=== PATIENT | male | born 1965 | race African-American/Black ===

== ENCOUNTER 2016-08-15 18:11 | Observation (INO) | payer MEDICAID ==
[~2016-08-15] VITALS: Ht 190.5 cm; Wt 81.6 kg
[~2016-08-15 18:11] MED LIST: ASPI-1159 PO; CARV3.1242 PO; FURO40TA5 PO; LOSA50TA20 PO
[2016-08-15] MEDS ORDERED: FUROSEMIDE 40MG TABLET PO ONE (20:00)
[2016-08-15] MEDS ORDERED: LOSARTAN POTASSIUM 50 MG TABLET PO ONE (20:00)
[2016-08-15] MEDS ORDERED: ASPIRIN 81MG TABLET PO ONE (20:00)
[2016-08-15 20:29] LABS: BASOPHILS % 1.3 % (0.0-2.0); EOSINOPHILS % 7.9 % (0.0-5.0); HEMATOCRIT. 39.1 % (42.0-52.0); LYMPHOCYTES % 31.3 % (20.0-50.0); MEAN CORPUSCULAR HEMOGLOBIN 33.6 pg (28.0-32.0); MEAN CORPUSCULAR VOLUME 93.5 fL (80.0-94.0); MEAN PLATELET VOLUME 8.7 fl (7.4-10.4); MONOCYTES % 5.3 % (2.0-8.0); NEUTROPHILS % 54.2 % (40.0-76.0); PLATELET 148 x1000/uL (130-400); RED BLOOD CELL COUNT 4.18 mill/uL (4.7-6.1); RED CELL DISTRIBUTION WIDTH 15.5 % (11.6-14.6)
[2016-08-15 20:34] LABS: CHLORIDE 111 mEq/L (98-107)
[2016-08-15 20:37] LABS: CARBON DIOXIDE 26 mEq/L (21-32)
[2016-08-15 20:38] LABS: D-DIMER 1.82 mg/L FEU (<0.50); PROTHROMBIN TIME 10.8 sec
[2016-08-15] MEDS ORDERED: NITROGLYCERIN OINT 1GM/INCH UDPKT TD ONE (20:45)
[2016-08-16 08:00] VITALS: BP_SYST 130; BP_DIAS 108; BP_DIAS 98
[2016-08-16 08:42] VITALS: BP 130/98
[2016-08-16] MEDS ORDERED: HYDROMORPHONE HCL/PF 2MG/ML CPJ IV PRN (08:45)
[2016-08-16] MEDS: IPRATROPIUM/ALBUTEROL 0.5-3(2.5)MG/3ML NEB HHN SCH ×4 (08:45→21:08)
[2016-08-16] MEDS ORDERED: ONDANSETRON HCL 4MG/2ML VIAL IV PRN (08:45)
[2016-08-16] MEDS ORDERED: ACETAMINOPHEN 325MG TABLET PO PRN (08:45)
[2016-08-16 08:55] VITALS: BP 130/98
[2016-08-16] MEDS: CARVEDILOL 3.125 MG TABLET PO SCH ×3 (09:00→21:26)
[2016-08-16] MEDS: LOSARTAN POTASSIUM 50 MG TABLET PO SCH (09:47)
[2016-08-16] MEDS: ASPIRIN 81MG EC TABLET PO SCH (09:47)
[2016-08-16] MEDS: ENOXAPARIN 40MG/0.4ML SYR SUBCUT SCH (09:48)
[2016-08-16] MEDS: FUROSEMIDE 20MG/2ML VIAL IVP SCH (09:48)
[2016-08-16 12:00] VITALS: BP 129/100
[2016-08-16] MEDS: AMLODIPINE 5MG TABLET PO SCH ×2 (13:30→21:26)
[2016-08-16] MEDS ORDERED: CLONIDINE 0.2MG TABLET PO PRN (13:30)
[2016-08-16] MEDS ORDERED: CLONIDINE 0.1MG TABLET PO PRN (13:30)
[2016-08-16 16:08] LABS: CREATINE KINASE MB FRACTION 5.2 ng/mL (0.5-3.6)
[2016-08-16 16:12] VITALS: BP 114/93
[2016-08-16 16:37] LABS: TROPONIN I 0.9 ng/mL (0.00-0.04)
[2016-08-16] MEDS: ATORVASTATIN CALCIUM 10MG TABLET PO SCH (21:25)
[2016-08-16 21:28] LABS: *AMPHETAMINES SCREEN URINE NEGATIVE (NEGATIVE); *BARBITURATES SCREEN URINE NEGATIVE (NEGATIVE); *BENZODIAZEPINES SCREEN URINE NEGATIVE (NEGATIVE); *COCAINE SCREEN URINE PRESUMTIVE POSITIVE (NEGATIVE); CANNABINOID URINE SCREEN PRESUMTIVE POSITIVE (NEGATIVE); METHADONE URINE SCREEN NEGATIVE (NEGATIVE); OPIATES URINE SCREEN NEGATIVE (NEGATIVE); PHENCYCLIDINE URINE SCREEN PRESUMTIVE POSITIVE (NEGATIVE)
[2016-08-17 00:16] LABS: CREATINE KINASE MB FRACTION 5.2 ng/mL (0.5-3.6)
[2016-08-17] MEDS: IPRATROPIUM/ALBUTEROL 0.5-3(2.5)MG/3ML NEB HHN SCH ×6 (00:43→20:51)
[2016-08-17 01:11] VITALS: BP 135/100
[2016-08-17 01:28] LABS: TROPONIN I 0.91 ng/mL (0.00-0.04)
[2016-08-17 04:00] VITALS: BP 144/110
[2016-08-17 06:01] LABS: BASOPHILS % 0.8 % (0.0-2.0); EOSINOPHILS % 6.6 % (0.0-5.0); HEMATOCRIT. 42.3 % (42.0-52.0); HEMOGLOBIN. 14.8 g/dL (14.0-18.0); LYMPHOCYTES % 30.8 % (20.0-50.0); MEAN CORPUSCULAR HEMOGLOBIN 32.7 pg (28.0-32.0); MEAN CORPUSCULAR VOLUME 93.9 fL (80.0-94.0); MEAN PLATELET VOLUME 9.5 fl (7.4-10.4); MONOCYTES % 4.6 % (2.0-8.0); NEUTROPHILS % 57.2 % (40.0-76.0); PLATELET 148 x1000/uL (130-400); RED BLOOD CELL COUNT 4.51 mill/uL (4.7-6.1); RED CELL DISTRIBUTION WIDTH 15.2 % (11.6-14.6)
[2016-08-17 06:35] LABS: CARBON DIOXIDE 24 mEq/L (21-32); CHLORIDE 106 mEq/L (98-107)
[2016-08-17 07:23] LABS: BG BASE EXCESS -1.4 mmol/L (-2.0-2.0); BG DEOXYHEMOGLOBIN 8.7 % (0.0-5.0); BG FRACTION INSPIRED OXYGEN 21; BG HCO3 ACT 22.8 mmol/L (22.0-26.0); BG METHEMOGLOBIN 0.4 % (0.0-1.5); BG OXYGEN SATURATION 91.2 % (92.0-98.5); BG OXYHEMOGLOBIN 89.9 % (94.0-97.0); BG PH 7.408 (7.350-7.450); BG PO2 64.9 mmHg (75.0-100.0); BG SAMPLE SITE RIGHT RADIAL; BG TOTAL HEMOGLOBIN 15.4 g/dL (12.0-18.0); BG VENT MODE ROOM AIR
[2016-08-17 08:00] VITALS: BP_SYST 143; BP_SYST 99; BP_DIAS 110; BP_DIAS 59
[2016-08-17 08:01] LABS: TROPONIN I 0.92 ng/mL (0.00-0.04)
[2016-08-17] MEDS: CARVEDILOL 3.125 MG TABLET PO SCH (09:00)
[2016-08-17] MEDS: LOSARTAN POTASSIUM 50 MG TABLET PO SCH ×2 (09:21→20:33)
[2016-08-17] MEDS: ASPIRIN 81MG EC TABLET PO SCH (09:21)
[2016-08-17] MEDS: AMLODIPINE 5MG TABLET PO SCH ×2 (09:21→23:39)
[2016-08-17] MEDS: LORAZEPAM 0.5MG TABLET PO PRN ×2 (09:21→18:14)
[2016-08-17] MEDS: FUROSEMIDE 20MG/2ML VIAL IVP SCH (09:21)
[2016-08-17] MEDS: ENOXAPARIN 40MG/0.4ML SYR SUBCUT SCH (09:22)
[2016-08-17 12:00] VITALS: BP 135/101
[2016-08-17] MEDS ORDERED: MAGNESIUM 2 G PREMIX 50 ML IV NR (13:00)
[2016-08-17 16:00] VITALS: BP 124/101
[2016-08-17 20:00] VITALS: BP_SYST 114; BP_SYST 136; BP_DIAS 109; BP_DIAS 93
[2016-08-17] MEDS: ATORVASTATIN CALCIUM 10MG TABLET PO SCH (20:32)
[2016-08-17] MEDS: ISOSORB DINIT/HYDRALAZINE HCL 20/37.5MG TABLET PO SCH (22:00)
[2016-08-18] VITALS: BP 129/107
[2016-08-18] MEDS: IPRATROPIUM/ALBUTEROL 0.5-3(2.5)MG/3ML NEB HHN SCH ×3 (00:59→08:00)
[2016-08-18 04:00] VITALS: BP 131/103
[2016-08-18] MEDS: ISOSORB DINIT/HYDRALAZINE HCL 20/37.5MG TABLET PO SCH (05:48)
[2016-08-18 08:00] VITALS: BP_SYST 103; BP_SYST 134; BP_DIAS 70; BP_DIAS 84
[2016-08-18] MEDS ORDERED: CARVEDILOL 3.125 MG TABLET PO SCH (09:00)
[2016-08-18] MEDS ORDERED: METOPROLOL TARTRATE 50MG TABLET PO NR (09:00)
[2016-08-18] MEDS: ENOXAPARIN 40MG/0.4ML SYR SUBCUT SCH (09:23)
[2016-08-18] MEDS: ASPIRIN 81MG EC TABLET PO SCH (09:24)
[2016-08-18] MEDS: LOSARTAN POTASSIUM 50 MG TABLET PO SCH (09:24)
[2016-08-18] MEDS: FUROSEMIDE 20MG/2ML VIAL IVP SCH (09:24)
[2016-08-18] MEDS: AMLODIPINE 5MG TABLET PO SCH (09:24)
[2016-08-18] MEDS: LORAZEPAM 0.5MG TABLET PO PRN (09:28)
[2016-08-18 10:53] VITALS: BP 140/89
[2016-08-18 12:00] VITALS: BP 120/88
[2016-08-18] MEDS ORDERED: METOPROLOL TARTRATE 50MG TABLET PO SCH (21:00)
== END 2016-08-18 12:25 | disposition home or self-care (01) ==
LOC: ER 20:36 → 5WST 21:03 → INTOOBSV 21:03 → EDBEDREQ 21:07 → ENRESERV 08-16 07:03
PROVIDERS: ADMIT Internal Medicine Geriatric Medicine; ATTEND Internal Medicine Geriatric Medicine
DX: I50.23 Acute on chronic systolic (congestive) heart failure (principal); N18.9 Chronic kidney disease, unspecified; I13.0 Hypertensive heart and chronic kidney disease with heart failure and stage 1 through stage 4 chronic kidney disease, or unspecified chronic kidney disease; R74.8 Abnormal levels of other serum enzymes; E78.5 Hyperlipidemia, unspecified; F10.10 Alcohol abuse, uncomplicated; F14.10 Cocaine abuse, uncomplicated; F17.200 Nicotine dependence, unspecified, uncomplicated; I25.2 Old myocardial infarction; I25.5 Ischemic cardiomyopathy; I34.0 Nonrheumatic mitral (valve) insufficiency; I42.0 Dilated cardiomyopathy; Z79.82 Long term (current) use of aspirin; Z91.14 Patient's other noncompliance with medication regimen
CPT/HCPCS: 36415; 36600; 71010; 80048; 80053; 80305; 82270; 82375; 82553; 82805; 83735; 83880; 84443; 84484; 85025; 85379; 85610; 93005; 94640; 94664; 96365; 96367; 96372; 96375; 96376; 99285; G0378; J1650; J1940; J3475; J7030; 96366; J7620

== ENCOUNTER 2016-12-12 01:40 | Inpatient (IN) | payer MEDICAID ==
[~2016-12-12] VITALS: Ht 188 cm; Wt 74.4 kg
[2016-12-12] VITALS (28 sets, daily range): BP systolic 98–143; BP diastolic 34–109
[~2016-12-12 01:40] MED LIST changes: -CARV3.1242 PO
[2016-12-12] MEDS ORDERED: LORAZEPAM 2MG/ML CPJ IV ONE (02:15)
[2016-12-12 02:31] LABS: EOSINOPHILS % 1.9 % (0.0-5.0); HEMATOCRIT. 38.7 % (42.0-52.0); HEMOGLOBIN. 13.4 g/dL (14.0-18.0); LYMPHOCYTES % 16.7 % (20.0-50.0); MEAN CORPUSCULAR HEMOGLOBIN 30.9 pg (28.0-32.0); MEAN CORPUSCULAR VOLUME 89.5 fL (80.0-94.0); MEAN PLATELET VOLUME 8.6 fl (7.4-10.4); NEUTROPHILS % 75.4 % (40.0-76.0); PLATELET 237 x1000/uL (130-400); RED BLOOD CELL COUNT 4.32 mill/uL (4.7-6.1)
[2016-12-12] MEDS ORDERED: SPIR25TA4 PO (02:35)
[2016-12-12] MEDS ORDERED: LOSA25TA12 PO (02:35)
[2016-12-12] MEDS ORDERED: CARV3.1242 PO (02:35)
[2016-12-12 03:08] LABS: CARBON DIOXIDE 24 mEq/L (21-32); CHLORIDE 106 mEq/L (98-107); TROPONIN I 0.29 ng/mL (0.00-0.04)
[2016-12-12] MEDS ORDERED: FUROSEMIDE 40MG/4ML VIAL IVP ONE (03:45)
[2016-12-12] MEDS ORDERED: ACETAMINOPHEN 325MG TABLET PO PRN ×2 (05:00→07:15)
[2016-12-12] MEDS: FUROSEMIDE 40MG/4ML VIAL IVP SCH ×3 (09:06→22:50)
[2016-12-12] MEDS: SPIRONOLACTONE 25MG TABLET PO SCH (09:06)
[2016-12-12] MEDS: CARVEDILOL 3.125 MG TABLET PO SCH ×2 (09:07→21:26)
[2016-12-12] MEDS: LOSARTAN POTASSIUM 25 MG TABLET PO SCH (09:07)
[2016-12-12] MEDS: ASPIRIN 81MG EC TABLET PO SCH (09:07)
[2016-12-12] MEDS: ENOXAPARIN 40MG/0.4ML SYR SUBCUT SCH (09:22)
[2016-12-12] MEDS ORDERED: FLUMAZENIL 0.1 MG/ML 5ML VIAL IV NR (10:00)
[2016-12-12] MEDS ORDERED: FLUMAZENIL 0.1 MG/ML 5ML VIAL IV PRN (10:05)
[2016-12-12 10:16] LABS: BG BASE EXCESS 1.7 mmol/L (-2.0-2.0); BG CARBOXYHEMOGLOBIN 0.5 % (0.5-1.5); BG DEOXYHEMOGLOBIN 0.8 % (0.0-5.0); BG FRACTION INSPIRED OXYGEN 100; BG HCO3 ACT 19.7 mmol/L (22.0-26.0); BG METHEMOGLOBIN 0.3 % (0.0-1.5); BG OXYGEN SATURATION 99.2 % (92.0-98.5); BG OXYHEMOGLOBIN 98.4 % (94.0-97.0); BG PCO2 17.7 mmHg (35.0-45.0); BG PH 7.665 (7.350-7.450); BG PO2 180.7 mmHg (75.0-100.0); BG SAMPLE SITE RIGHT BRACHIAL; BG TOTAL HEMOGLOBIN 13.5 g/dL (12.0-18.0); BG VENT MODE MASK - NRB
[2016-12-12 11:45] LABS: BASOPHILS % 1.2 % (0.0-2.0); HEMATOCRIT. 39.5 % (42.0-52.0); HEMOGLOBIN. 13.7 g/dL (14.0-18.0); LYMPHOCYTES % 28.7 % (20.0-50.0); MEAN CORPUSCULAR HEMOGLOBIN 31.4 pg (28.0-32.0); MEAN CORPUSCULAR VOLUME 90.7 fL (80.0-94.0); MEAN PLATELET VOLUME 8.8 fl (7.4-10.4); MONOCYTES % 7.8 % (2.0-8.0); NEUTROPHILS % 58.3 % (40.0-76.0); PLATELET 241 x1000/uL (130-400); RED BLOOD CELL COUNT 4.36 mill/uL (4.7-6.1); RED CELL DISTRIBUTION WIDTH 16.4 % (11.6-14.6)
[2016-12-12] MEDS: LORAZEPAM 0.5MG TABLET PO PRN ×3 (11:53→22:55)
[2016-12-12 12:05] LABS: TROPONIN I 0.26 ng/mL (0.00-0.04)
[2016-12-12 12:12] LABS: CARBON DIOXIDE 23 mEq/L (21-32); CHLORIDE 105 mEq/L (98-107)
[2016-12-12 12:40] LABS: *AMPHETAMINES SCREEN URINE NEGATIVE (NEGATIVE); *BARBITURATES SCREEN URINE NEGATIVE (NEGATIVE); *BENZODIAZEPINES SCREEN URINE NEGATIVE (NEGATIVE); *COCAINE SCREEN URINE NEGATIVE (NEGATIVE); CANNABINOID URINE SCREEN NEGATIVE (NEGATIVE); METHADONE URINE SCREEN NEGATIVE (NEGATIVE); OPIATES URINE SCREEN NEGATIVE (NEGATIVE); PHENCYCLIDINE URINE SCREEN NEGATIVE (NEGATIVE)
[2016-12-12 19:28] LABS: CREATINE KINASE MB FRACTION 3.5 ng/mL (0.5-3.6); TROPONIN I 0.28 ng/mL (0.00-0.04)
[2016-12-12 20:51] LABS: BG BASE EXCESS -0.3 mmol/L (-2.0-2.0); BG CARBOXYHEMOGLOBIN 0.4 % (0.5-1.5); BG DEOXYHEMOGLOBIN 6.2 % (0.0-5.0); BG FRACTION INSPIRED OXYGEN 32; BG HCO3 ACT 23.8 mmol/L (22.0-26.0); BG METHEMOGLOBIN 0.3 % (0.0-1.5); BG OXYGEN SATURATION 93.8 % (92.0-98.5); BG OXYHEMOGLOBIN 93.1 % (94.0-97.0); BG PCO2 37.7 mmHg (35.0-45.0); BG PH 7.419 (7.350-7.450); BG PO2 79.2 mmHg (75.0-100.0); BG SAMPLE SITE LEFT RADIAL; BG TOTAL HEMOGLOBIN 13.7 g/dL (12.0-18.0); BG VENT MODE NASAL CANNULA
[2016-12-13] VITALS (26 sets, daily range): BP systolic 72–162; BP diastolic 52–110
[2016-12-13] MEDS: LORAZEPAM 0.5MG TABLET PO PRN ×2 (04:13→07:53)
[2016-12-13 05:31] LABS: BASOPHILS % 1.4 % (0.0-2.0); EOSINOPHILS % 4.4 % (0.0-5.0); HEMATOCRIT. 39.5 % (42.0-52.0); HEMOGLOBIN. 13.9 g/dL (14.0-18.0); LYMPHOCYTES % 29.2 % (20.0-50.0); MEAN CORPUSCULAR HEMOGLOBIN 31.4 pg (28.0-32.0); MEAN CORPUSCULAR VOLUME 88.8 fL (80.0-94.0); PLATELET 257 x1000/uL (130-400); RED BLOOD CELL COUNT 4.44 mill/uL (4.7-6.1); RED CELL DISTRIBUTION WIDTH 16.4 % (11.6-14.6)
[2016-12-13 06:58] LABS: TROPONIN I 0.22 ng/mL (0.00-0.04)
[2016-12-13] MEDS: LOSARTAN POTASSIUM 25 MG TABLET PO SCH (07:53)
[2016-12-13] MEDS: ASPIRIN 81MG EC TABLET PO SCH (07:53)
[2016-12-13] MEDS: ENOXAPARIN 40MG/0.4ML SYR SUBCUT SCH (07:54)
[2016-12-13] MEDS: CARVEDILOL 3.125 MG TABLET PO SCH ×2 (07:54→20:44)
[2016-12-13] MEDS: SPIRONOLACTONE 25MG TABLET PO SCH (07:56)
[2016-12-13 08:18] LABS: BG BASE EXCESS 0.7 mmol/L (-2.0-2.0); BG CARBOXYHEMOGLOBIN 0.7 % (0.5-1.5); BG DEOXYHEMOGLOBIN 2.3 % (0.0-5.0); BG FRACTION INSPIRED OXYGEN 28; BG HCO3 ACT 22.8 mmol/L (22.0-26.0); BG METHEMOGLOBIN 0.2 % (0.0-1.5); BG OXYGEN SATURATION 97.7 % (92.0-98.5); BG OXYHEMOGLOBIN 96.8 % (94.0-97.0); BG PCO2 29.3 mmHg (35.0-45.0); BG PH 7.508 (7.350-7.450); BG PO2 101.2 mmHg (75.0-100.0); BG SAMPLE SITE LEFT BRACHIAL; BG TOTAL HEMOGLOBIN 13.5 g/dL (12.0-18.0); BG VENT MODE NASAL CANNULA
[2016-12-13] MEDS: FUROSEMIDE 40MG/4ML VIAL IVP SCH (20:44)
[2016-12-14] VITALS (7 sets, daily range): BP systolic 111–122; BP diastolic 76–95
[2016-12-14 06:41] LABS: BASOPHILS % 0.7 % (0.0-2.0); EOSINOPHILS % 5.2 % (0.0-5.0); HEMATOCRIT. 37.7 % (42.0-52.0); HEMOGLOBIN. 13.5 g/dL (14.0-18.0); LYMPHOCYTES % 24.2 % (20.0-50.0); MEAN CORPUSCULAR HEMOGLOBIN 31.5 pg (28.0-32.0); MEAN CORPUSCULAR VOLUME 87.8 fL (80.0-94.0); MEAN PLATELET VOLUME 8.9 fl (7.4-10.4); MONOCYTES % 5.9 % (2.0-8.0); PLATELET 254 x1000/uL (130-400); RED CELL DISTRIBUTION WIDTH 16.5 % (11.6-14.6)
[2016-12-14 06:58] LABS: TROPONIN I 0.21 ng/mL (0.00-0.04)
[2016-12-14] MEDS: LORAZEPAM 0.5MG TABLET PO PRN (08:58)
[2016-12-14] MEDS: LOSARTAN POTASSIUM 25 MG TABLET PO SCH (08:58)
[2016-12-14] MEDS: SPIRONOLACTONE 25MG TABLET PO SCH (08:58)
[2016-12-14] MEDS: ASPIRIN 81MG EC TABLET PO SCH (08:59)
[2016-12-14] MEDS: FUROSEMIDE 40MG/4ML VIAL IVP SCH ×2 (09:00→21:08)
[2016-12-14] MEDS: CARVEDILOL 3.125 MG TABLET PO SCH ×2 (09:00→21:08)
[2016-12-14] MEDS: ENOXAPARIN 40MG/0.4ML SYR SUBCUT SCH (09:01)
[2016-12-14] MEDS: ALPRAZOLAM 0.25 MG TABLET PO SCH ×2 (15:27→21:08)
[2016-12-15 04:00] VITALS: BP 106/69
[2016-12-15] MEDS: ALPRAZOLAM 0.25 MG TABLET PO SCH ×3 (06:09→21:27)
[2016-12-15 06:35] LABS: BASOPHILS % 0.9 % (0.0-2.0); EOSINOPHILS % 4.3 % (0.0-5.0); HEMATOCRIT. 37.8 % (42.0-52.0); HEMOGLOBIN. 13.6 g/dL (14.0-18.0); LYMPHOCYTES % 29.2 % (20.0-50.0); MEAN CORPUSCULAR HEMOGLOBIN 31.5 pg (28.0-32.0); MEAN CORPUSCULAR VOLUME 87.7 fL (80.0-94.0); MEAN PLATELET VOLUME 9.3 fl (7.4-10.4); MONOCYTES % 6.2 % (2.0-8.0); NEUTROPHILS % 59.4 % (40.0-76.0); PLATELET 254 x1000/uL (130-400); RED BLOOD CELL COUNT 4.31 mill/uL (4.7-6.1); RED CELL DISTRIBUTION WIDTH 16.4 % (11.6-14.6)
[2016-12-15 06:52] LABS: TROPONIN I 0.2 ng/mL (0.00-0.04)
[2016-12-15 07:49] VITALS: BP 119/89
[2016-12-15] MEDS: SPIRONOLACTONE 25MG TABLET PO SCH (08:18)
[2016-12-15] MEDS: LOSARTAN POTASSIUM 25 MG TABLET PO SCH (08:18)
[2016-12-15] MEDS: CARVEDILOL 3.125 MG TABLET PO SCH ×2 (08:18→21:28)
[2016-12-15] MEDS: ASPIRIN 81MG EC TABLET PO SCH (08:18)
[2016-12-15] MEDS: FUROSEMIDE 40MG/4ML VIAL IVP SCH ×2 (08:22→21:27)
[2016-12-15] MEDS: ENOXAPARIN 40MG/0.4ML SYR SUBCUT SCH (08:22)
[2016-12-15 11:47] VITALS: BP 108/78
[2016-12-15 15:36] VITALS: BP 111/81
[2016-12-15 20:00] VITALS: BP 109/86
[2016-12-16] VITALS: BP_SYST 108; BP_SYST 110; BP_DIAS 73; BP_DIAS 74
[2016-12-16 04:00] VITALS: BP 109/81
[2016-12-16] MEDS: ALPRAZOLAM 0.25 MG TABLET PO SCH (05:16)
[2016-12-16 07:22] LABS: BASOPHILS % 0.9 % (0.0-2.0); EOSINOPHILS % 6.6 % (0.0-5.0); HEMATOCRIT. 39.4 % (42.0-52.0); LYMPHOCYTES % 23.3 % (20.0-50.0); MEAN CORPUSCULAR VOLUME 87.6 fL (80.0-94.0); MEAN PLATELET VOLUME 9.3 fl (7.4-10.4); MONOCYTES % 6.9 % (2.0-8.0); NEUTROPHILS % 62.3 % (40.0-76.0); PLATELET 271 x1000/uL (130-400); RED BLOOD CELL COUNT 4.49 mill/uL (4.7-6.1); RED CELL DISTRIBUTION WIDTH 16.2 % (11.6-14.6)
[2016-12-16 08:00] VITALS: BP 114/81
[2016-12-16 08:10] LABS: CARBON DIOXIDE 25 mEq/L (21-32); CHLORIDE 102 mEq/L (98-107)
[2016-12-16 09:28] LABS: HEMOGLOBIN. 14.1 g/dL (14.0-18.0); MEAN CORPUSCULAR HEMOGLOBIN 31.4 pg (28.0-32.0)
[2016-12-16] MEDS: ASPIRIN 81MG EC TABLET PO SCH (09:59)
[2016-12-16] MEDS: LOSARTAN POTASSIUM 25 MG TABLET PO SCH (09:59)
[2016-12-16] MEDS: ENOXAPARIN 40MG/0.4ML SYR SUBCUT SCH (09:59)
[2016-12-16] MEDS: SPIRONOLACTONE 25MG TABLET PO SCH (10:00)
[2016-12-16] MEDS: FUROSEMIDE 40MG/4ML VIAL IVP SCH (10:00)
[2016-12-16] MEDS: CARVEDILOL 3.125 MG TABLET PO SCH (10:00)
[2016-12-16 11:53] VITALS: BP 114/81
== END 2016-12-16 12:35 | disposition home or self-care (01) | DRG 194 ==
LOC: ER 01:42 → 5WST 05:01 → ENRESERV 06:03 → CVICU 09:58 → 8WST 12-13 17:21
PROVIDERS: ADMIT Internal Medicine; ATTEND Internal Medicine
DX: I13.0 Hypertensive heart and chronic kidney disease with heart failure and stage 1 through stage 4 chronic kidney disease, or unspecified chronic kidney disease (principal); E87.3 Alkalosis; N17.9 Acute kidney failure, unspecified; J84.9 Interstitial pulmonary disease, unspecified; E44.0 Moderate protein-calorie malnutrition; I50.23 Acute on chronic systolic (congestive) heart failure; R06.4 Hyperventilation; I25.5 Ischemic cardiomyopathy; F17.210 Nicotine dependence, cigarettes, uncomplicated; F19.10 Other psychoactive substance abuse, uncomplicated; F41.0 Panic disorder [episodic paroxysmal anxiety]; G47.00 Insomnia, unspecified; I25.10 Atherosclerotic heart disease of native coronary artery without angina pectoris; I34.0 Nonrheumatic mitral (valve) insufficiency; N18.2 Chronic kidney disease, stage 2 (mild); Z79.82 Long term (current) use of aspirin; Z79.899 Other long term (current) drug therapy; I25.2 Old myocardial infarction; Z82.49 Family history of ischemic heart disease and other diseases of the circulatory system; Z91.14 Patient's other noncompliance with medication regimen; Z87.19 Personal history of other diseases of the digestive system
CPT/HCPCS: 36415; 36600; 70450; 71010; 80048; 80053; 80305; 82375; 82550; 82553; 82805; 82962; 83735; 83880; 84443; 84484; 85025; 85379; 93005; 93306; 93970; 96374; 96375; 97162; 99285; J1650; J1940; J2060; A4315

== ENCOUNTER 2017-01-24 19:28 | Emergency (ER) | payer MEDICAID ==
[~2017-01-24] VITALS: Ht 185.4 cm; Wt 90.0 kg
[~2017-01-24 19:28] MED LIST changes: +ALPR0.25 PO; +CARV3.1242 PO; +LOSA25TA12 PO; -LOSA50TA20 PO; +SPIR25TA4 PO
[2017-01-24 20:50] LABS: CLARITY URINE CLEAR (CLEAR); COLOR URINE DARK YELLOW (YELLOW); KETONES URINE NEGATIVE (NEGATIVE); LEUKOCYTE ESTERASE URINE 1+ (NEGATIVE); NITRITE URINE NEGATIVE (NEGATIVE); OCCULT BLOOD URINE NEGATIVE (NEGATIVE); PH URINE 5.5 (4.5-8.0); PROTEIN URINE 1+ (NEGATIVE); SPECIFIC GRAVITY URINE 1.025 (1.005-1.030)
[2017-01-24 21:05] LABS: *AMPHETAMINES SCREEN URINE NEGATIVE (NEGATIVE); *BARBITURATES SCREEN URINE NEGATIVE (NEGATIVE); *BENZODIAZEPINES SCREEN URINE PRESUMTIVE POSITIVE (NEGATIVE); *COCAINE SCREEN URINE PRESUMTIVE POSITIVE (NEGATIVE); CANNABINOID URINE SCREEN PRESUMTIVE POSITIVE (NEGATIVE); METHADONE URINE SCREEN NEGATIVE (NEGATIVE); OPIATES URINE SCREEN NEGATIVE (NEGATIVE); PHENCYCLIDINE URINE SCREEN PRESUMTIVE POSITIVE (NEGATIVE)
[2017-01-24 21:12] LABS: BASOPHILS % 1.2 % (0.0-2.0); EOSINOPHILS % 3.2 % (0.0-5.0); HEMATOCRIT. 39.7 % (42.0-52.0); HEMOGLOBIN. 13.5 g/dL (14.0-18.0); LYMPHOCYTES % 22.6 % (20.0-50.0); MEAN CORPUSCULAR VOLUME 91.1 fL (80.0-94.0); MEAN PLATELET VOLUME 7.7 fl (7.4-10.4); MONOCYTES % 3.7 % (2.0-8.0); NEUTROPHILS % 69.3 % (40.0-76.0); PLATELET 242 x1000/uL (130-400); RED BLOOD CELL COUNT 4.36 mill/uL (4.7-6.1)
[2017-01-24 21:16] LABS: CHLORIDE 109 mEq/L (98-107)
[2017-01-24 21:19] LABS: INR 1.2
[2017-01-24 21:26] LABS: CARBON DIOXIDE 20 mEq/L (21-32); ETHANOL BLOOD 13 mg/dL
[2017-01-24 23:00] VITALS: BP 117/97
== END 2017-01-24 23:02 | disposition home or self-care (01) ==
LOC: ER 19:28
DX: G93.40 Encephalopathy, unspecified (principal); T40.5X1A Poisoning by cocaine, accidental (unintentional), initial encounter; T40.991A Poisoning by other psychodysleptics [hallucinogens], accidental (unintentional), initial encounter; I50.9 Heart failure, unspecified; I11.0 Hypertensive heart disease with heart failure; Z79.82 Long term (current) use of aspirin; Y92.89 Other specified places as the place of occurrence of the external cause
CPT/HCPCS: 36415; 70450; 80053; 80305; 81001; 82962; 85025; 85610; 93005; 99285; G0482; Z7610

== ENCOUNTER 2017-01-30 21:48 | Inpatient (IN) | payer MEDICAID ==
[~2017-01-30] VITALS: Ht 190.5 cm; Wt 77.1 kg
[2017-01-31] MEDS ORDERED: LORAZEPAM 2MG/ML CPJ IV ONE (01:30)
[2017-01-31 01:43] LABS: BASOPHILS % 1.1 % (0.0-2.0); EOSINOPHILS % 3.2 % (0.0-5.0); HEMATOCRIT. 42.9 % (42.0-52.0); HEMOGLOBIN. 14.6 g/dL (14.0-18.0); LYMPHOCYTES % 39.3 % (20.0-50.0); MEAN CORPUSCULAR HEMOGLOBIN 31.3 pg (28.0-32.0); MEAN PLATELET VOLUME 8.4 fl (7.4-10.4); MONOCYTES % 5.2 % (2.0-8.0); NEUTROPHILS % 51.2 % (40.0-76.0); PLATELET 193 x1000/uL (130-400); RED BLOOD CELL COUNT 4.67 mill/uL (4.7-6.1)
[2017-01-31 01:58] LABS: TROPONIN I 0.39 ng/mL (0.00-0.04)
[2017-01-31 04:54] LABS: BASOPHILS % 1.3 % (0.0-2.0); EOSINOPHILS % 3.4 % (0.0-5.0); LYMPHOCYTES % 37.8 % (20.0-50.0); MEAN CORPUSCULAR HEMOGLOBIN 31.1 pg (28.0-32.0); MEAN CORPUSCULAR VOLUME 91.5 fL (80.0-94.0); MEAN PLATELET VOLUME 8.7 fl (7.4-10.4); MONOCYTES % 5.1 % (2.0-8.0); NEUTROPHILS % 52.4 % (40.0-76.0); PLATELET 195 x1000/uL (130-400); RED BLOOD CELL COUNT 4.81 mill/uL (4.7-6.1); RED CELL DISTRIBUTION WIDTH 18.5 % (11.6-14.6)
[2017-01-31 05:09] LABS: CARBON DIOXIDE 22 mEq/L (21-32); CHLORIDE 105 mEq/L (98-107)
[2017-01-31 06:00] LABS: *AMPHETAMINES SCREEN URINE NEGATIVE (NEGATIVE); *BARBITURATES SCREEN URINE NEGATIVE (NEGATIVE); *BENZODIAZEPINES SCREEN URINE PRESUMTIVE POSITIVE (NEGATIVE); *COCAINE SCREEN URINE PRESUMTIVE POSITIVE (NEGATIVE); CANNABINOID URINE SCREEN PRESUMTIVE POSITIVE (NEGATIVE); METHADONE URINE SCREEN NEGATIVE (NEGATIVE); OPIATES URINE SCREEN NEGATIVE (NEGATIVE); PHENCYCLIDINE URINE SCREEN PRESUMTIVE POSITIVE (NEGATIVE)
[2017-01-31 09:20] VITALS: BP 129/95
[2017-01-31 09:34] VITALS: BP 129/95
[2017-01-31] MEDS ORDERED: ALPRAZOLAM 0.25 MG TABLET PO PRN (10:45)
[2017-01-31] MEDS ORDERED: NA PHOS,M-B/NA PHOS,DI-BA ENEMA 118ML PR PRN (10:45)
[2017-01-31] MEDS ORDERED: ONDANSETRON HCL 4MG/2ML VIAL IV PRN (10:45)
[2017-01-31] MEDS ORDERED: MAGNESIUM/ALUMINUM HYDROXIDE/SIMETHICONE 30ML UDC PO PRN (10:45)
[2017-01-31] MEDS ORDERED: HYDROCODONE/ACETAMINOPHEN 5/325MG TABLET PO PRN (10:45)
[2017-01-31] MEDS ORDERED: LORAZEPAM 2MG/ML CPJ IV PRN (10:45)
[2017-01-31] MEDS ORDERED: CLONIDINE 0.1MG TABLET PO PRN (10:45)
[2017-01-31] MEDS ORDERED: DOCUSATE SODIUM 100MG CAPSULE PO PRN (10:45)
[2017-01-31] MEDS ORDERED: HYDROCODONE/ACETAMINOPHEN 10/325MG TABLET PO PRN (10:45)
[2017-01-31] MEDS ORDERED: ACETAMINOPHEN 325MG TABLET PO PRN (10:45)
[2017-01-31] MEDS ORDERED: CARVEDILOL 3.125 MG TABLET PO SCH (10:45)
[2017-01-31] MEDS ORDERED: IPRATROPIUM/ALBUTEROL 0.5-3(2.5)MG/3ML NEB INH PRN (10:45)
[2017-01-31] MEDS ORDERED: SPIRONOLACTONE 5MG/ML 1ML ORAL SYR(NEO) PO SCH (10:45)
[2017-01-31 12:00] VITALS: BP 123/94
[2017-01-31] MEDS: DEXT 5%/0.45% NACL 1000ML 1,000 ML IV SCH (13:07)
[2017-01-31] MEDS: ENOXAPARIN 40MG/0.4ML SYR SUBCUT SCH (13:07)
[2017-01-31] MEDS: SPIRONOLACTONE 25MG TABLET PO SCH (13:08)
[2017-01-31] MEDS: ASPIRIN 81MG EC TABLET PO SCH (13:08)
[2017-01-31] MEDS: CARVEDILOL 6.25 MG TABLET PO SCH ×2 (13:08→20:23)
[2017-01-31] MEDS: LOSARTAN POTASSIUM 25 MG TABLET PO SCH (13:09)
[2017-01-31] MEDS: FUROSEMIDE 40MG/4ML VIAL IV SCH ×2 (13:09→17:05)
[2017-01-31 16:00] VITALS: BP 118/88
[2017-01-31 16:41] LABS: TROPONIN I 0.35 ng/mL (0.00-0.04)
[2017-01-31 18:49] LABS: CLARITY URINE CLEAR (CLEAR); COLOR URINE DARK YELLOW (YELLOW); KETONES URINE NEGATIVE (NEGATIVE); LEUKOCYTE ESTERASE URINE 2+ (NEGATIVE); NITRITE URINE NEGATIVE (NEGATIVE); OCCULT BLOOD URINE NEGATIVE (NEGATIVE); PH URINE 6.5 (4.5-8.0); PROTEIN URINE NEGATIVE (NEGATIVE); SPECIFIC GRAVITY URINE 1.021 (1.005-1.030)
[2017-01-31 20:00] VITALS: BP 109/78
[2017-01-31 23:12] LABS: TROPONIN I 0.32 ng/mL (0.00-0.04)
[2017-02-01] VITALS: BP 115/90
[2017-02-01] MEDS: DEXT 5%/0.45% NACL 1000ML 1,000 ML IV SCH (01:43)
[2017-02-01 04:00] VITALS: BP 111/82
[2017-02-01 05:59] LABS: BASOPHILS % 0.9 % (0.0-2.0); EOSINOPHILS % 4.8 % (0.0-5.0); HEMATOCRIT. 38.8 % (42.0-52.0); HEMOGLOBIN. 13.6 g/dL (14.0-18.0); LYMPHOCYTES % 30.5 % (20.0-50.0); MEAN CORPUSCULAR HEMOGLOBIN 32.2 pg (28.0-32.0); MEAN PLATELET VOLUME 9.1 fl (7.4-10.4); MONOCYTES % 5.1 % (2.0-8.0); NEUTROPHILS % 58.7 % (40.0-76.0); PLATELET 163 x1000/uL (130-400); RED BLOOD CELL COUNT 4.22 mill/uL (4.7-6.1)
[2017-02-01 06:20] LABS: CARBON DIOXIDE 24 mEq/L (21-32); CHLORIDE 101 mEq/L (98-107)
[2017-02-01 06:31] LABS: HDL CHOLESTEROL 48 mg/dL (40-59); LDL CHOLESTEROL 64 mg/dL (5-100)
[2017-02-01 08:00] VITALS: BP 125/93
[2017-02-01] MEDS: SPIRONOLACTONE 25MG TABLET PO SCH (08:21)
[2017-02-01] MEDS: ASPIRIN 81MG EC TABLET PO SCH (08:21)
[2017-02-01] MEDS: FUROSEMIDE 40MG/4ML VIAL IV SCH (08:21)
[2017-02-01] MEDS: LOSARTAN POTASSIUM 25 MG TABLET PO SCH (08:22)
[2017-02-01] MEDS: ENOXAPARIN 40MG/0.4ML SYR SUBCUT SCH (08:22)
[2017-02-01] MEDS: CARVEDILOL 6.25 MG TABLET PO SCH (08:22)
[2017-02-01] MEDS ORDERED: LOSA25TA12 PO (11:27)
[2017-02-01] MEDS ORDERED: SPIR25TA4 PO (11:27)
[2017-02-01] MEDS ORDERED: CARV3.1242 PO (11:27)
[2017-02-01] MEDS ORDERED: ASPI-1159 PO (11:27)
[2017-02-01] MEDS ORDERED: FURO40TA5 PO (11:27)
[2017-02-01 12:00] VITALS: BP 103/76
[2017-02-01 13:32] VITALS: BP 103/93
== END 2017-02-01 15:08 | disposition home or self-care (01) | DRG 194 ==
LOC: ER 21:48 → 7WST 01-31 06:46 → ENRESERV 01-31 07:55
PROVIDERS: ADMIT Internal Medicine; ATTEND Internal Medicine
DX: I11.0 Hypertensive heart disease with heart failure (principal); N17.0 Acute kidney failure with tubular necrosis; I27.20 Pulmonary hypertension, unspecified; E44.1 Mild protein-calorie malnutrition; E87.5 Hyperkalemia; I50.23 Acute on chronic systolic (congestive) heart failure; I42.9 Cardiomyopathy, unspecified; F14.90 Cocaine use, unspecified, uncomplicated; F41.1 Generalized anxiety disorder; F17.210 Nicotine dependence, cigarettes, uncomplicated; F19.10 Other psychoactive substance abuse, uncomplicated; I25.2 Old myocardial infarction; Z87.19 Personal history of other diseases of the digestive system; Z79.899 Other long term (current) drug therapy; Z79.82 Long term (current) use of aspirin; Z68.21 Body mass index [BMI] 21.0-21.9, adult
CPT/HCPCS: 36415; 71010; 80053; 80061; 80305; 81001; 82550; 83880; 84443; 84484; 85025; 93005; 93970; 96374; 99285; J1650; J1940; J2060; J3490

== ENCOUNTER 2017-02-13 15:11 | Inpatient (IN) | payer MEDICAID ==
[~2017-02-13] VITALS: Ht 190.5 cm; Wt 69.9 kg
[~2017-02-13 15:11] MED LIST changes: -ALPR0.25 PO
[2017-02-13] MEDS ORDERED: ASPIRIN 81MG TABLET PO ONE (22:45)
[2017-02-13] MEDS: NITROGLYCERIN 0.4MG TABLET SL SL PRN ×2 (23:13→23:19)
[2017-02-13 23:34] LABS: BASOPHILS % 0.7 % (0.0-2.0); HEMATOCRIT. 43.6 % (42.0-52.0); HEMOGLOBIN. 14.8 g/dL (14.0-18.0); LYMPHOCYTES % 13.8 % (20.0-50.0); MEAN CORPUSCULAR HEMOGLOBIN 31.7 pg (28.0-32.0); MEAN CORPUSCULAR VOLUME 93.3 fL (80.0-94.0); MEAN PLATELET VOLUME 9.5 fl (7.4-10.4); MONOCYTES % 9.9 % (2.0-8.0); NEUTROPHILS % 75.6 % (40.0-76.0); PLATELET 135 x1000/uL (130-400); RED BLOOD CELL COUNT 4.67 mill/uL (4.7-6.1); RED CELL DISTRIBUTION WIDTH 18.8 % (11.6-14.6)
[2017-02-13 23:38] LABS: INR 1.5; PROTHROMBIN TIME 15.7 sec (9.4-11.6)
[2017-02-13 23:50] LABS: CARBON DIOXIDE 21 mEq/L (21-32); CHLORIDE 101 mEq/L (98-107); ETHANOL BLOOD < 10 mg/dL
[2017-02-14] MEDS ORDERED: ENOXAPARIN 80MG/0.8ML SYR SUBCUT ONE
[2017-02-14] MEDS ORDERED: MAGNESIUM/ALUMINUM HYDROXIDE/SIMETHICONE 30ML UDC PO PRN (00:30)
[2017-02-14] MEDS ORDERED: HYDROCODONE/ACETAMINOPHEN 5/325MG TABLET PO PRN (00:30)
[2017-02-14] MEDS ORDERED: ONDANSETRON HCL 4MG/2ML VIAL IV PRN (00:30)
[2017-02-14] MEDS ORDERED: IPRATROPIUM/ALBUTEROL 0.5-3(2.5)MG/3ML NEB INH PRN (00:30)
[2017-02-14] MEDS ORDERED: CLONIDINE 0.1MG TABLET PO PRN (00:30)
[2017-02-14] MEDS ORDERED: DOCUSATE SODIUM 100MG CAPSULE PO PRN (00:30)
[2017-02-14] MEDS ORDERED: ENOXAPARIN 40MG/0.4ML SYR SUBCUT SCH (00:30)
[2017-02-14 05:20] LABS: *AMPHETAMINES SCREEN URINE NEGATIVE (NEGATIVE); *BARBITURATES SCREEN URINE NEGATIVE (NEGATIVE); *BENZODIAZEPINES SCREEN URINE NEGATIVE (NEGATIVE); *COCAINE SCREEN URINE PRESUMTIVE POSITIVE (NEGATIVE); CANNABINOID URINE SCREEN PRESUMTIVE POSITIVE (NEGATIVE); METHADONE URINE SCREEN NEGATIVE (NEGATIVE); OPIATES URINE SCREEN NEGATIVE (NEGATIVE); PHENCYCLIDINE URINE SCREEN PRESUMTIVE POSITIVE (NEGATIVE)
[2017-02-14 05:44] LABS: HEMATOCRIT. 43.9 % (42.0-52.0); HEMOGLOBIN. 14.6 g/dL (14.0-18.0); MEAN CORPUSCULAR HEMOGLOBIN 31.2 pg (28.0-32.0); MEAN CORPUSCULAR VOLUME 93.6 fL (80.0-94.0); MEAN PLATELET VOLUME 9.7 fl (7.4-10.4); PLATELET 132 x1000/uL (130-400); RED BLOOD CELL COUNT 4.69 mill/uL (4.7-6.1); RED CELL DISTRIBUTION WIDTH 18.2 % (11.6-14.6)
[2017-02-14 06:03] LABS: CREATINE KINASE MB FRACTION 3.1 ng/mL (0.5-3.6)
[2017-02-14] MEDS ORDERED: LORA1TAB PO (06:18)
[2017-02-14] MEDS ORDERED: LORAZEPAM 1MG TABLET PO PRN (06:30)
[2017-02-14 08:00] VITALS: BP 130/87
[2017-02-14 08:08] LABS: ATYPICAL LYMPHOCYTES 1; NUCLEATED RED BLOOD CELLS 6 /100 WBC
[2017-02-14 08:09] LABS: PLATELET ESTIMATE SLIGHTLY DECREASED
[2017-02-14] MEDS ORDERED: ASPIRIN 81MG EC TABLET PO SCH (09:00)
[2017-02-14] MEDS ORDERED: LOSARTAN POTASSIUM 25 MG TABLET PO SCH (09:00)
[2017-02-14] MEDS ORDERED: FUROSEMIDE 40MG/4ML VIAL IV SCH ×2 (09:00)
[2017-02-14] MEDS ORDERED: SPIRONOLACTONE 5MG/ML 1ML ORAL SYR(NEO) PO SCH (09:00)
[2017-02-14] MEDS ORDERED: CARVEDILOL 3.125 MG TABLET PO SCH ×2 (09:00)
[2017-02-14 09:02] VITALS: BP 130/87
[2017-02-14] MEDS: SPIRONOLACTONE 25MG TABLET PO SCH (09:51)
[2017-02-14] MEDS: LOSARTAN POTASSIUM 25 MG TABLET PO SCH (09:52)
[2017-02-14] MEDS: ASPIRIN 81MG EC TABLET PO SCH (09:53)
[2017-02-14] MEDS: LORAZEPAM 1MG TABLET PO PRN (11:25)
[2017-02-14 12:00] VITALS: BP 126/97
[2017-02-14 16:00] VITALS: BP 95/68
[2017-02-14 20:00] VITALS: BP 102/48
[2017-02-15] VITALS: BP 101/69
[2017-02-15] MEDS: ENOXAPARIN 40MG/0.4ML SYR SUBCUT SCH ×2 (00:34→23:33)
[2017-02-15 04:00] VITALS: BP 106/75
[2017-02-15 06:34] LABS: BASOPHILS % 1.1 % (0.0-2.0); EOSINOPHILS % 0.2 % (0.0-5.0); HEMATOCRIT. 41.6 % (42.0-52.0); HEMOGLOBIN. 14.2 g/dL (14.0-18.0); LYMPHOCYTES % 21.2 % (20.0-50.0); MEAN CORPUSCULAR HEMOGLOBIN 31.7 pg (28.0-32.0); MEAN CORPUSCULAR VOLUME 92.8 fL (80.0-94.0); MEAN PLATELET VOLUME 10.1 fl (7.4-10.4); NEUTROPHILS % 70.5 % (40.0-76.0); PLATELET 142 x1000/uL (130-400); RED BLOOD CELL COUNT 4.48 mill/uL (4.7-6.1); RED CELL DISTRIBUTION WIDTH 18.5 % (11.6-14.6)
[2017-02-15 08:00] VITALS: BP 99/82
[2017-02-15] MEDS: LOSARTAN POTASSIUM 25 MG TABLET PO SCH (09:00)
[2017-02-15] MEDS: ASPIRIN 81MG EC TABLET PO SCH (10:42)
[2017-02-15] MEDS: SPIRONOLACTONE 25MG TABLET PO SCH (10:43)
[2017-02-15] MEDS: LORAZEPAM 1MG TABLET PO PRN (10:49)
[2017-02-15 12:00] VITALS: BP 103/74
[2017-02-15] MEDS: FUROSEMIDE 40MG TABLET PO SCH (13:05)
[2017-02-15] MEDS: GUAIFENESIN 200MG/10ML SUGAR FREE UDC PO PRN (13:46)
[2017-02-15 16:00] VITALS: BP 118/75
[2017-02-15 20:00] VITALS: BP 113/94
[2017-02-16] VITALS: BP 124/91
[2017-02-16 04:00] VITALS: BP 94/77
[2017-02-16] MEDS: LORAZEPAM 1MG TABLET PO PRN ×2 (04:06→20:59)
[2017-02-16 07:06] LABS: BASOPHILS % 0.6 % (0.0-2.0); EOSINOPHILS % 0.1 % (0.0-5.0); HEMATOCRIT. 41.8 % (42.0-52.0); HEMOGLOBIN. 14.2 g/dL (14.0-18.0); LYMPHOCYTES % 26.5 % (20.0-50.0); MEAN CORPUSCULAR HEMOGLOBIN 31.4 pg (28.0-32.0); MEAN CORPUSCULAR VOLUME 92.3 fL (80.0-94.0); MONOCYTES % 7.2 % (2.0-8.0); NEUTROPHILS % 65.6 % (40.0-76.0); PLATELET 135 x1000/uL (130-400); RED BLOOD CELL COUNT 4.53 mill/uL (4.7-6.1)
[2017-02-16 08:00] VITALS: BP 104/80
[2017-02-16] MEDS: LOSARTAN POTASSIUM 25 MG TABLET PO SCH (09:00)
[2017-02-16] MEDS: SPIRONOLACTONE 25MG TABLET PO SCH (09:20)
[2017-02-16] MEDS: ASPIRIN 81MG EC TABLET PO SCH (09:20)
[2017-02-16] MEDS: FUROSEMIDE 40MG TABLET PO SCH (09:20)
[2017-02-16] MEDS: GUAIFENESIN 200MG/10ML SUGAR FREE UDC PO PRN ×2 (09:27→20:59)
[2017-02-16 12:00] VITALS: BP 121/73
[2017-02-16 16:00] VITALS: BP 110/93
[2017-02-16 20:00] VITALS: BP 108/79
[2017-02-17] VITALS: BP 116/80
[2017-02-17] MEDS: ENOXAPARIN 40MG/0.4ML SYR SUBCUT SCH (00:56)
[2017-02-17 04:00] VITALS: BP 114/84
[2017-02-17 06:38] LABS: BASOPHILS % 0.6 % (0.0-2.0); EOSINOPHILS % 0.3 % (0.0-5.0); HEMATOCRIT. 41.6 % (42.0-52.0); HEMOGLOBIN. 14.6 g/dL (14.0-18.0); LYMPHOCYTES % 25.9 % (20.0-50.0); MEAN CORPUSCULAR HEMOGLOBIN 32.4 pg (28.0-32.0); MEAN CORPUSCULAR VOLUME 92.2 fL (80.0-94.0); MEAN PLATELET VOLUME 10.4 fl (7.4-10.4); MONOCYTES % 8.4 % (2.0-8.0); NEUTROPHILS % 64.8 % (40.0-76.0); PLATELET 121 x1000/uL (130-400); RED BLOOD CELL COUNT 4.51 mill/uL (4.7-6.1); RED CELL DISTRIBUTION WIDTH 18.5 % (11.6-14.6)
[2017-02-17 08:00] VITALS: BP 101/83
[2017-02-17] MEDS: LOSARTAN POTASSIUM 25 MG TABLET PO SCH (08:57)
[2017-02-17] MEDS: ASPIRIN 81MG EC TABLET PO SCH (08:58)
[2017-02-17] MEDS: FUROSEMIDE 40MG TABLET PO SCH (08:59)
[2017-02-17] MEDS: SPIRONOLACTONE 25MG TABLET PO SCH (09:00)
[2017-02-17 12:00] VITALS: BP 93/71
[2017-02-17 16:00] VITALS: BP 96/68
[2017-02-17] MEDS: LORAZEPAM 1MG TABLET PO PRN (18:34)
[2017-02-17] MEDS: GUAIFENESIN 200MG/10ML SUGAR FREE UDC PO PRN (19:44)
[2017-02-17 20:00] VITALS: BP_SYST 107; BP_SYST 108; BP_DIAS 86; BP_DIAS 89
[2017-02-17 20:11] LABS: CLARITY URINE CLEAR (CLEAR); COLOR URINE YELLOW (YELLOW); KETONES URINE NEGATIVE (NEGATIVE); LEUKOCYTE ESTERASE URINE NEGATIVE (NEGATIVE); NITRITE URINE NEGATIVE (NEGATIVE); OCCULT BLOOD URINE NEGATIVE (NEGATIVE); PROTEIN URINE 1+ (NEGATIVE); SODIUM URINE RANDOM 90 mEq/L; SPECIFIC GRAVITY URINE 1.014 (1.005-1.030); UROBILINOGEN URINE 0.2 E.U./dL (0.2-1.0)
[2017-02-17] MEDS ORDERED: IPRATROPIUM/ALBUTEROL 0.5-3(2.5)MG/3ML NEB INH PRN (20:15)
[2017-02-18] VITALS: BP 108/89
[2017-02-18] MEDS: ENOXAPARIN 40MG/0.4ML SYR SUBCUT SCH (00:08)
[2017-02-18 04:00] VITALS: BP 109/73
[2017-02-18] MEDS: GUAIFENESIN 200MG/10ML SUGAR FREE UDC PO PRN (06:01)
[2017-02-18 07:30] LABS: BASOPHILS % 0.6 % (0.0-2.0); EOSINOPHILS % 0.3 % (0.0-5.0); HEMATOCRIT. 43.3 % (42.0-52.0); HEMOGLOBIN. 14.7 g/dL (14.0-18.0); LYMPHOCYTES % 27.3 % (20.0-50.0); MEAN CORPUSCULAR HEMOGLOBIN 31.5 pg (28.0-32.0); MEAN CORPUSCULAR VOLUME 92.9 fL (80.0-94.0); MEAN PLATELET VOLUME 10.3 fl (7.4-10.4); NEUTROPHILS % 63.8 % (40.0-76.0); PLATELET 137 x1000/uL (130-400); RED BLOOD CELL COUNT 4.66 mill/uL (4.7-6.1); RED CELL DISTRIBUTION WIDTH 18.1 % (11.6-14.6)
[2017-02-18 08:00] VITALS: BP 109/82
[2017-02-18] MEDS: SPIRONOLACTONE 25MG TABLET PO SCH (09:00)
[2017-02-18] MEDS: LOSARTAN POTASSIUM 25 MG TABLET PO SCH (09:00)
[2017-02-18] MEDS: ASPIRIN 81MG EC TABLET PO SCH (09:57)
[2017-02-18] MEDS: FUROSEMIDE 40MG TABLET PO SCH (09:57)
[2017-02-18 11:21] VITALS: BP 102/68
== END 2017-02-18 13:50 | disposition home or self-care (01) | DRG 190 ==
LOC: ER 15:34 → 7WST 02-14 00:26 → ENRESERV 02-14 03:18 → ER 02-14 05:50
PROVIDERS: ADMIT Internal Medicine; ATTEND Internal Medicine
DX: I21.4 Non-ST elevation (NSTEMI) myocardial infarction (principal); I47.2 Ventricular tachycardia; I50.23 Acute on chronic systolic (congestive) heart failure; E43 Unspecified severe protein-calorie malnutrition; N17.9 Acute kidney failure, unspecified; N18.3 Chronic kidney disease, stage 3 (moderate); I13.0 Hypertensive heart and chronic kidney disease with heart failure and stage 1 through stage 4 chronic kidney disease, or unspecified chronic kidney disease; I42.0 Dilated cardiomyopathy; F14.10 Cocaine abuse, uncomplicated; I50.9 Heart failure, unspecified; I27.20 Pulmonary hypertension, unspecified; J44.9 Chronic obstructive pulmonary disease, unspecified; E87.1 Hypo-osmolality and hyponatremia; F16.129 Hallucinogen abuse with intoxication, unspecified; F41.9 Anxiety disorder, unspecified; Z59.0 Homelessness; Z79.82 Long term (current) use of aspirin; Z79.899 Other long term (current) drug therapy; Z82.49 Family history of ischemic heart disease and other diseases of the circulatory system; Z87.19 Personal history of other diseases of the digestive system; Z87.891 Personal history of nicotine dependence; Z90.49 Acquired absence of other specified parts of digestive tract; Z91.14 Patient's other noncompliance with medication regimen; Z68.1 Body mass index [BMI] 19.9 or less, adult
CPT/HCPCS: 36415; 71045; 76770; 80048; 80053; 80061; 80305; 81001; 82533; 82550; 82553; 83735; 83880; 83935; 84100; 84300; 84443; 84484; 85025; 85610; 87536; 93005; 93970; 96372; 99291; G0482; J1650; J1940; J7050; J7620

== ENCOUNTER 2017-03-02 03:22 | Inpatient (IN) | payer MEDICAID ==
[~2017-03-02] VITALS: Ht 190.5 cm; Wt 77.1 kg
[~2017-03-02 03:22] MED LIST changes: +LORA1TAB PO
[2017-03-02] MEDS ORDERED: ONDANSETRON HCL 4MG/2ML VIAL IV STA (04:00)
[2017-03-02] MEDS ORDERED: MORPHINE SULFATE 4 MG/ML CPJ (NOT FOR IM USE) IV STA (04:00)
[2017-03-02 05:09] LABS: BASOPHILS % 0.6 % (0.0-2.0); EOSINOPHILS % 1.9 % (0.0-5.0); HEMATOCRIT. 38.1 % (42.0-52.0); MEAN CORPUSCULAR HEMOGLOBIN 31.4 pg (28.0-32.0); MEAN CORPUSCULAR VOLUME 92.2 fL (80.0-94.0); MEAN PLATELET VOLUME 8.5 fl (7.4-10.4); MONOCYTES % 8.2 % (2.0-8.0); NEUTROPHILS % 66.3 % (40.0-76.0); PLATELET 239 x1000/uL (130-400); RED BLOOD CELL COUNT 4.13 mill/uL (4.7-6.1); RED CELL DISTRIBUTION WIDTH 17.3 % (11.6-14.6)
[2017-03-02 05:14] LABS: INR 1.3; PROTHROMBIN TIME 13.4 sec (9.4-11.6)
[2017-03-02 05:55] LABS: CARBON DIOXIDE 21 mEq/L (21-32)
[2017-03-02 06:08] LABS: TROPONIN I 0.28 ng/mL (0.00-0.04)
[2017-03-02 07:21] LABS: CHLORIDE 105 mEq/L (98-107)
[2017-03-02 08:10] LABS: CLARITY URINE CLOUDY (CLEAR); COLOR URINE DARK YELLOW (YELLOW); KETONES URINE TRACE (NEGATIVE); LEUKOCYTE ESTERASE URINE 2+ (NEGATIVE); NITRITE URINE NEGATIVE (NEGATIVE); OCCULT BLOOD URINE NEGATIVE (NEGATIVE); PROTEIN URINE 1+ (NEGATIVE); SPECIFIC GRAVITY URINE 1.024 (1.005-1.030)
[2017-03-02] MEDS ORDERED: DOCUSATE SODIUM 100MG CAPSULE PO PRN (11:30)
[2017-03-02] MEDS ORDERED: MAGNESIUM/ALUMINUM HYDROXIDE/SIMETHICONE 30ML UDC PO PRN (11:30)
[2017-03-02] MEDS ORDERED: ONDANSETRON HCL 4MG/2ML VIAL IV PRN (11:30)
[2017-03-02] MEDS ORDERED: ACETAMINOPHEN 325MG TABLET PO PRN (11:30)
[2017-03-02] MEDS ORDERED: CLONIDINE 0.1MG TABLET PO PRN (11:30)
[2017-03-02 12:48] LABS: CHLORIDE 105 mEq/L (98-107)
[2017-03-02 12:55] LABS: CARBON DIOXIDE 23 mEq/L (21-32)
[2017-03-02] MEDS: HYDROCODONE/ACETAMINOPHEN 5/325MG TABLET PO PRN ×2 (14:36→20:30)
[2017-03-02 14:48] VITALS: BP 103/78
[2017-03-02] MEDS: ENOXAPARIN 40MG/0.4ML SYR SUBCUT SCH (14:59)
[2017-03-02 15:08] LABS: CREATINE KINASE MB FRACTION 1.5 ng/mL (0.5-3.6); TROPONIN I 0.26 ng/mL (0.00-0.04)
[2017-03-02] MEDS: IPRATROPIUM/ALBUTEROL 0.5-3(2.5)MG/3ML NEB INH PRN ×2 (15:15→21:25)
[2017-03-02] MEDS: BUDESONIDE 0.5MG/2ML NEB HHN SCH ×2 (15:15→21:25)
[2017-03-02 15:47] LABS: *AMPHETAMINES SCREEN URINE NEGATIVE (NEGATIVE); *BARBITURATES SCREEN URINE NEGATIVE (NEGATIVE); *BENZODIAZEPINES SCREEN URINE NEGATIVE (NEGATIVE); *COCAINE SCREEN URINE PRESUMTIVE POSITIVE (NEGATIVE); CANNABINOID URINE SCREEN PRESUMTIVE POSITIVE (NEGATIVE); METHADONE URINE SCREEN NEGATIVE (NEGATIVE); OPIATES URINE SCREEN PRESUMTIVE POSITIVE (NEGATIVE); PHENCYCLIDINE URINE SCREEN NEGATIVE (NEGATIVE)
[2017-03-02 16:00] VITALS: BP 113/84
[2017-03-02 18:00] VITALS: BP 122/87
[2017-03-02] MEDS: GUAIFENESIN 200MG/10ML SUGAR FREE UDC PO PRN (18:38)
[2017-03-02 20:00] VITALS: BP 124/92
[2017-03-02 22:00] VITALS: BP 102/41
[2017-03-02 23:53] LABS: CREATINE KINASE MB FRACTION 1.3 ng/mL (0.5-3.6); TROPONIN I 0.24 ng/mL (0.00-0.04)
[2017-03-03] VITALS (12 sets, daily range): BP systolic 106–129; BP diastolic 69–94
[2017-03-03] MEDS: HYDROCODONE/ACETAMINOPHEN 5/325MG TABLET PO PRN ×2 (05:50→23:09)
[2017-03-03 06:39] LABS: BASOPHILS % 0.9 % (0.0-2.0); EOSINOPHILS % 1.7 % (0.0-5.0); HEMATOCRIT. 39.3 % (42.0-52.0); HEMOGLOBIN. 13.7 g/dL (14.0-18.0); LYMPHOCYTES % 27.7 % (20.0-50.0); MEAN CORPUSCULAR HEMOGLOBIN 31.8 pg (28.0-32.0); MEAN CORPUSCULAR VOLUME 91.5 fL (80.0-94.0); MEAN PLATELET VOLUME 8.9 fl (7.4-10.4); MONOCYTES % 10.2 % (2.0-8.0); NEUTROPHILS % 59.5 % (40.0-76.0); PLATELET 225 x1000/uL (130-400); RED CELL DISTRIBUTION WIDTH 17.2 % (11.6-14.6)
[2017-03-03] MEDS: ASPIRIN 81MG EC TABLET PO SCH (07:58)
[2017-03-03] MEDS: BUDESONIDE 0.5MG/2ML NEB HHN SCH (09:37)
[2017-03-03] MEDS: IPRATROPIUM/ALBUTEROL 0.5-3(2.5)MG/3ML NEB INH PRN ×2 (09:39→17:14)
[2017-03-03] MEDS: GUAIFENESIN 200MG/10ML SUGAR FREE UDC PO PRN ×3 (10:48→20:55)
[2017-03-03] MEDS: ENOXAPARIN 40MG/0.4ML SYR SUBCUT SCH (14:49)
[2017-03-03] MEDS: FUROSEMIDE 40MG/4ML VIAL IVP SCH (16:20)
[2017-03-04] VITALS (18 sets, daily range): BP systolic 103–131; BP diastolic 37–90
[2017-03-04 06:56] LABS: EOSINOPHILS % 2.4 % (0.0-5.0); HEMATOCRIT. 38.9 % (42.0-52.0); HEMOGLOBIN. 13.7 g/dL (14.0-18.0); LYMPHOCYTES % 31.1 % (20.0-50.0); MEAN CORPUSCULAR HEMOGLOBIN 32.2 pg (28.0-32.0); MEAN CORPUSCULAR VOLUME 91.8 fL (80.0-94.0); MEAN PLATELET VOLUME 8.9 fl (7.4-10.4); MONOCYTES % 9.2 % (2.0-8.0); NEUTROPHILS % 56.3 % (40.0-76.0); PLATELET 228 x1000/uL (130-400); RED BLOOD CELL COUNT 4.24 mill/uL (4.7-6.1); RED CELL DISTRIBUTION WIDTH 16.9 % (11.6-14.6)
[2017-03-04 07:08] LABS: CARBON DIOXIDE 24 mEq/L (21-32); CHLORIDE 100 mEq/L (98-107)
[2017-03-04] MEDS: FUROSEMIDE 40MG/4ML VIAL IVP SCH ×2 (08:06→17:07)
[2017-03-04] MEDS: ASPIRIN 81MG EC TABLET PO SCH (08:06)
[2017-03-04] MEDS: SPIRONOLACTONE 25MG TABLET PO SCH ×2 (08:07→08:11)
[2017-03-04] MEDS: AMLODIPINE 2.5MG TABLET PO SCH (08:08)
[2017-03-04] MEDS ORDERED: ASPIRIN 81MG EC TABLET PO SCH (09:00)
[2017-03-04] MEDS ORDERED: SPIRONOLACTONE 25MG TABLET PO SCH (09:00)
[2017-03-04] MEDS: IPRATROPIUM/ALBUTEROL 0.5-3(2.5)MG/3ML NEB INH PRN ×2 (09:33→21:12)
[2017-03-04] MEDS: BUDESONIDE 0.5MG/2ML NEB HHN SCH ×2 (09:33→21:12)
[2017-03-04] MEDS ORDERED: METOLAZONE 2.5MG TABLET PO NR (10:45)
[2017-03-04] MEDS: ENOXAPARIN 40MG/0.4ML SYR SUBCUT SCH (15:23)
[2017-03-04] MEDS: HYDROCODONE/ACETAMINOPHEN 5/325MG TABLET PO PRN (22:01)
[2017-03-05] VITALS (12 sets, daily range): BP systolic 105–127; BP diastolic 67–96
[2017-03-05] MEDS: HYDROCODONE/ACETAMINOPHEN 5/325MG TABLET PO PRN ×2 (01:55→08:40)
[2017-03-05] MEDS: FUROSEMIDE 40MG/4ML VIAL IVP SCH ×2 (06:08→17:43)
[2017-03-05 06:12] LABS: BASOPHILS % 0.7 % (0.0-2.0); EOSINOPHILS % 1.5 % (0.0-5.0); HEMATOCRIT. 42.2 % (42.0-52.0); HEMOGLOBIN. 14.4 g/dL (14.0-18.0); LYMPHOCYTES % 19.4 % (20.0-50.0); MEAN CORPUSCULAR HEMOGLOBIN 31.5 pg (28.0-32.0); MEAN CORPUSCULAR VOLUME 92.1 fL (80.0-94.0); MEAN PLATELET VOLUME 8.8 fl (7.4-10.4); MONOCYTES % 11.5 % (2.0-8.0); NEUTROPHILS % 66.9 % (40.0-76.0); PLATELET 255 x1000/uL (130-400); RED BLOOD CELL COUNT 4.58 mill/uL (4.7-6.1); RED CELL DISTRIBUTION WIDTH 16.8 % (11.6-14.6)
[2017-03-05] MEDS: AMLODIPINE 2.5MG TABLET PO SCH (08:39)
[2017-03-05] MEDS: ASPIRIN 81MG EC TABLET PO SCH (08:39)
[2017-03-05] MEDS: BUDESONIDE 0.5MG/2ML NEB HHN SCH ×2 (09:20→19:58)
[2017-03-05] MEDS: IPRATROPIUM/ALBUTEROL 0.5-3(2.5)MG/3ML NEB INH PRN (09:20)
[2017-03-05] MEDS ORDERED: KETOROLAC 10MG TABLET PO SCH (13:00)
[2017-03-05] MEDS: ENOXAPARIN 40MG/0.4ML SYR SUBCUT SCH (15:22)
[2017-03-05] MEDS: KETOROLAC 10MG TABLET PO PRN (22:07)
[2017-03-06] VITALS (12 sets, daily range): BP systolic 99–132; BP diastolic 44–95
[2017-03-06] MEDS: FUROSEMIDE 40MG/4ML VIAL IVP SCH (07:52)
[2017-03-06] MEDS: ASPIRIN 81MG EC TABLET PO SCH (09:07)
[2017-03-06] MEDS: AMLODIPINE 2.5MG TABLET PO SCH (09:07)
[2017-03-06] MEDS: BUDESONIDE 0.5MG/2ML NEB HHN SCH ×2 (09:35→20:50)
[2017-03-06 11:50] LABS: BASOPHILS % 0.5 % (0.0-2.0); EOSINOPHILS % 2.4 % (0.0-5.0); HEMATOCRIT. 42.4 % (42.0-52.0); HEMOGLOBIN. 14.7 g/dL (14.0-18.0); LYMPHOCYTES % 8.4 % (20.0-50.0); MEAN CORPUSCULAR HEMOGLOBIN 31.1 pg (28.0-32.0); MEAN CORPUSCULAR VOLUME 89.8 fL (80.0-94.0); MEAN PLATELET VOLUME 8.2 fl (7.4-10.4); MONOCYTES % 12.8 % (2.0-8.0); NEUTROPHILS % 75.9 % (40.0-76.0); PLATELET 289 x1000/uL (130-400); RED BLOOD CELL COUNT 4.72 mill/uL (4.7-6.1); RED CELL DISTRIBUTION WIDTH 17.3 % (11.6-14.6)
[2017-03-06 11:58] LABS: INR 1.4; PARTIAL THROMBOPLASTIN TIME 33.6 sec (23.4-31.0)
[2017-03-06] MEDS: KETOROLAC 10MG TABLET PO PRN (12:33)
[2017-03-06] MEDS: ENOXAPARIN 40MG/0.4ML SYR SUBCUT SCH (16:29)
[2017-03-06] MEDS: METHYLPREDNISOLONE SOD SUCC 125 MG/2 ML VIAL IV SCH ×2 (16:29→23:12)
[2017-03-06] MEDS: IPRATROPIUM/ALBUTEROL 0.5-3(2.5)MG/3ML NEB INH PRN (20:50)
[2017-03-06] MEDS: HYDROCODONE/ACETAMINOPHEN 5/325MG TABLET PO PRN (21:51)
[2017-03-07] VITALS (9 sets, daily range): BP systolic 100–134; BP diastolic 49–87
[2017-03-07 07:27] LABS: HEMATOCRIT. 40.7 % (42.0-52.0); HEMOGLOBIN. 14.1 g/dL (14.0-18.0); MEAN CORPUSCULAR HEMOGLOBIN 31.9 pg (28.0-32.0); MEAN CORPUSCULAR VOLUME 92.2 fL (80.0-94.0); MEAN PLATELET VOLUME 8.1 fl (7.4-10.4); PLATELET 302 x1000/uL (130-400); RED BLOOD CELL COUNT 4.41 mill/uL (4.7-6.1); RED CELL DISTRIBUTION WIDTH 16.6 % (11.6-14.6)
[2017-03-07 07:50] LABS: CHLORIDE 91 mEq/L (98-107)
[2017-03-07 07:54] LABS: CARBON DIOXIDE 28 mEq/L (21-32)
[2017-03-07] MEDS: METHYLPREDNISOLONE SOD SUCC 125 MG/2 ML VIAL IV SCH (08:22)
[2017-03-07] MEDS: ASPIRIN 81MG EC TABLET PO SCH (08:22)
[2017-03-07] MEDS: AMLODIPINE 2.5MG TABLET PO SCH (08:22)
[2017-03-07 11:17] LABS: PLATELET ESTIMATE NORMAL
== END 2017-03-07 16:00 | disposition home or self-care (01) | DRG 133 ==
LOC: ER 03:23 → 3WST 05:52 → EDBEDREQ 05:55 → ENRESERV 14:09
PROVIDERS: ADMIT Internal Medicine; ATTEND Internal Medicine
DX: J96.00 Acute respiratory failure, unspecified whether with hypoxia or hypercapnia (principal); I50.23 Acute on chronic systolic (congestive) heart failure; E43 Unspecified severe protein-calorie malnutrition; J18.9 Pneumonia, unspecified organism; I24.9 Acute ischemic heart disease, unspecified; I13.0 Hypertensive heart and chronic kidney disease with heart failure and stage 1 through stage 4 chronic kidney disease, or unspecified chronic kidney disease; J44.0 Chronic obstructive pulmonary disease with (acute) lower respiratory infection; I27.20 Pulmonary hypertension, unspecified; N18.3 Chronic kidney disease, stage 3 (moderate); E87.5 Hyperkalemia; I25.5 Ischemic cardiomyopathy; F14.10 Cocaine abuse, uncomplicated; F17.210 Nicotine dependence, cigarettes, uncomplicated; F41.9 Anxiety disorder, unspecified; J44.1 Chronic obstructive pulmonary disease with (acute) exacerbation; T38.0X5A Adverse effect of glucocorticoids and synthetic analogues, initial encounter; D72.829 Elevated white blood cell count, unspecified; Y92.89 Other specified places as the place of occurrence of the external cause; Z79.82 Long term (current) use of aspirin; Z79.899 Other long term (current) drug therapy; Z87.19 Personal history of other diseases of the digestive system; Z90.49 Acquired absence of other specified parts of digestive tract; Z68.21 Body mass index [BMI] 21.0-21.9, adult
CPT/HCPCS: 36415; 71045; 71100; 78582; 80048; 80053; 80061; 80305; 81001; 82550; 82553; 83605; 83735; 83880; 84443; 84484; 85025; 85379; 85610; 85730; 87040; 87086; 93005; 93306; 93970; 94640; 94664; 96374; 96375; 99285; A9558; J1650; J1940; J2270; J2405; J2930; J7620; J7626

== ENCOUNTER 2017-08-10 04:04 | Inpatient (IN) | payer MEDICAID ==
[~2017-08-10] VITALS: Ht 373.4 cm; Wt 76.7 kg
[~2017-08-10 04:04] MED LIST changes: +AMLO2.5T45 PO; +FERR325T6 PO; +FURO-151 MT; -FURO40TA5 PO; -SPIR25TA4 PO; +SPIR25TA6 PO
[2017-08-10] MEDS ORDERED: NITROGLYCERIN OINT 1GM/INCH UDPKT TD STA (04:42)
[2017-08-10] MEDS ORDERED: FUROSEMIDE 40MG/4ML VIAL IV STA (04:42)
[2017-08-10] MEDS ORDERED: ASPIRIN 325MG TABLET PO ONE (04:45)
[2017-08-10 05:16] LABS: BASOPHILS % 1.2 % (0.0-2.0); EOSINOPHILS % 3.5 % (0.0-5.0); HEMATOCRIT. 42.6 % (42.0-52.0); HEMOGLOBIN. 14.9 g/dL (14.0-18.0); LYMPHOCYTES % 26.6 % (20.0-50.0); MEAN CORPUSCULAR HEMOGLOBIN 32.4 pg (28.0-32.0); MEAN CORPUSCULAR VOLUME 92.5 fL (80.0-94.0); MEAN PLATELET VOLUME 9.4 fl (7.4-10.4); MONOCYTES % 5.9 % (2.0-8.0); NEUTROPHILS % 62.8 % (40.0-76.0); PLATELET 145 x1000/uL (130-400); RED BLOOD CELL COUNT 4.61 mill/uL (4.7-6.1); RED CELL DISTRIBUTION WIDTH 16.1 % (11.6-14.6)
[2017-08-10 05:23] LABS: CHLORIDE 105 mEq/L (98-107)
[2017-08-10] MEDS ORDERED: NA PHOS,M-B/NA PHOS,DI-BA ENEMA 118ML PR PRN (07:30)
[2017-08-10] MEDS ORDERED: GUAIFENESIN 200MG/10ML SUGAR FREE UDC PO PRN (07:30)
[2017-08-10] MEDS ORDERED: ACETAMINOPHEN 650MG SUPP PR PRN (07:30)
[2017-08-10] MEDS ORDERED: HYDROCODONE/ACETAMINOPHEN 10/325MG TABLET PO PRN (07:30)
[2017-08-10] MEDS ORDERED: HYDROCODONE/ACETAMINOPHEN 5/325MG TABLET PO PRN (07:30)
[2017-08-10] MEDS ORDERED: ACETAMINOPHEN 325MG TABLET PO PRN (07:30)
[2017-08-10] MEDS ORDERED: ACETAMINOPHEN 650MG/20.3ML UDC GT PRN (07:30)
[2017-08-10] MEDS ORDERED: ONDANSETRON HCL 4MG/2ML VIAL IV PRN (07:30)
[2017-08-10] MEDS ORDERED: DIPHENHYDRAMINE 50MG/ML VIAL IV PRN (07:30)
[2017-08-10] MEDS ORDERED: MAGNESIUM/ALUMINUM HYDROXIDE/SIMETHICONE 30ML UDC PO PRN (07:30)
[2017-08-10] MEDS ORDERED: DOCUSATE SODIUM 100MG CAPSULE PO PRN (07:30)
[2017-08-10] MEDS ORDERED: IPRATROPIUM/ALBUTEROL 0.5-3(2.5)MG/3ML NEB INH PRN (07:30)
[2017-08-10 10:45] VITALS: BP 111/84
[2017-08-10 12:00] VITALS: BP 122/88
[2017-08-10 16:00] VITALS: BP 120/83
[2017-08-10 16:52] LABS: CREATINE KINASE MB FRACTION 2.7 ng/mL (0.5-3.6)
[2017-08-10 19:01] LABS: AMYLASE 46 IU/L (25-115)
[2017-08-10] MEDS: FUROSEMIDE 40MG/4ML VIAL IVP SCH (19:08)
[2017-08-10] MEDS: AMLODIPINE 5MG TABLET PO SCH (19:12)
[2017-08-10 20:00] VITALS: BP 104/82
[2017-08-10] MEDS: LORAZEPAM 0.5MG TABLET PO PRN (20:54)
[2017-08-10 21:51] LABS: CLARITY URINE CLEAR (CLEAR); COLOR URINE YELLOW (YELLOW); KETONES URINE NEGATIVE (NEGATIVE); LEUKOCYTE ESTERASE URINE 2+ (NEGATIVE); NITRITE URINE NEGATIVE (NEGATIVE); OCCULT BLOOD URINE NEGATIVE (NEGATIVE); PH URINE 6.5 (4.5-8.0); PROTEIN URINE NEGATIVE (NEGATIVE); SPECIFIC GRAVITY URINE 1.009 (1.005-1.030)
[2017-08-10 22:14] LABS: *AMPHETAMINES SCREEN URINE NEGATIVE (NEGATIVE); *BARBITURATES SCREEN URINE NEGATIVE (NEGATIVE); *BENZODIAZEPINES SCREEN URINE NEGATIVE (NEGATIVE)
[2017-08-10 22:15] LABS: *COCAINE SCREEN URINE PRESUMTIVE POSITIVE (NEGATIVE); CANNABINOID URINE SCREEN PRESUMTIVE POSITIVE (NEGATIVE); METHADONE URINE SCREEN NEGATIVE (NEGATIVE); OPIATES URINE SCREEN NEGATIVE (NEGATIVE); PHENCYCLIDINE URINE SCREEN NEGATIVE (NEGATIVE)
[2017-08-11] VITALS (7 sets, daily range): BP systolic 114–138; BP diastolic 83–98
[2017-08-11 02:17] LABS: CREATINE KINASE MB FRACTION 3.1 ng/mL (0.5-3.6)
[2017-08-11] MEDS: LORAZEPAM 0.5MG TABLET PO PRN ×2 (03:19→16:41)
[2017-08-11 07:50] LABS: CHLORIDE 103 mEq/L (98-107)
[2017-08-11 07:59] LABS: BASOPHILS % 1.3 % (0.0-2.0); EOSINOPHILS % 5.1 % (0.0-5.0); HEMATOCRIT. 43.3 % (42.0-52.0); HEMOGLOBIN. 15.2 g/dL (14.0-18.0); LYMPHOCYTES % 31.1 % (20.0-50.0); MEAN CORPUSCULAR HEMOGLOBIN 32.9 pg (28.0-32.0); MEAN CORPUSCULAR VOLUME 93.7 fL (80.0-94.0); MEAN PLATELET VOLUME 9.4 fl (7.4-10.4); MONOCYTES % 4.8 % (2.0-8.0); NEUTROPHILS % 57.7 % (40.0-76.0); PLATELET 140 x1000/uL (130-400); RED BLOOD CELL COUNT 4.62 mill/uL (4.7-6.1); RED CELL DISTRIBUTION WIDTH 16.4 % (11.6-14.6)
[2017-08-11 08:04] LABS: LDL CHOLESTEROL 91 mg/dL (5-100)
[2017-08-11 08:09] LABS: HDL CHOLESTEROL 66 mg/dL (40-59)
[2017-08-11 08:15] LABS: T4 FREE 1.12 ng/dL (0.76-1.46)
[2017-08-11] MEDS: FUROSEMIDE 40MG/4ML VIAL IVP SCH (08:26)
[2017-08-11] MEDS: AMLODIPINE 5MG TABLET PO SCH ×2 (08:27→16:31)
[2017-08-11] MEDS: ASPIRIN 81MG EC TABLET PO SCH (08:27)
[2017-08-11] MEDS ORDERED: NA PHOS,M-B/NA PHOS,DI-BA ENEMA 118ML PR PRN (10:15)
[2017-08-11] MEDS ORDERED: BISACODYL 10MG SUPP PR PRN (10:15)
[2017-08-11] MEDS ORDERED: SENNOSIDES/DOCUSATE SOD 8.6/50MG TABLET PO PRN (10:15)
[2017-08-11] MEDS ORDERED: FUROSEMIDE 40MG/4ML VIAL IVP SCH (17:15)
[2017-08-11 17:46] LABS: FOLIC ACID (FOLATE) SERUM 14.6 ng/mL (>5.38)
[2017-08-12] MEDS: LORAZEPAM 0.5MG TABLET PO PRN (00:06)
[2017-08-12 04:00] VITALS: BP 119/90
[2017-08-12] MEDS: FUROSEMIDE 40MG/4ML VIAL IVP SCH ×3 (06:44→21:26)
[2017-08-12 07:58] LABS: BASOPHILS % 1.7 % (0.0-2.0); EOSINOPHILS % 8.2 % (0.0-5.0); HEMATOCRIT. 42.9 % (42.0-52.0); HEMOGLOBIN. 15.2 g/dL (14.0-18.0); LYMPHOCYTES % 33.2 % (20.0-50.0); MEAN CORPUSCULAR HEMOGLOBIN 32.8 pg (28.0-32.0); MEAN CORPUSCULAR VOLUME 92.4 fL (80.0-94.0); MEAN PLATELET VOLUME 9.6 fl (7.4-10.4); MONOCYTES % 5.5 % (2.0-8.0); NEUTROPHILS % 51.4 % (40.0-76.0); PLATELET 141 x1000/uL (130-400); RED BLOOD CELL COUNT 4.64 mill/uL (4.7-6.1); RED CELL DISTRIBUTION WIDTH 16.2 % (11.6-14.6)
[2017-08-12 08:00] VITALS: BP 117/88
[2017-08-12 08:31] LABS: AMMONIA 40 uMol/L (<32)
[2017-08-12] MEDS: AMLODIPINE 5MG TABLET PO SCH ×2 (08:31→17:30)
[2017-08-12] MEDS: ASPIRIN 81MG EC TABLET PO SCH (08:31)
[2017-08-12 12:00] VITALS: BP 121/85
[2017-08-12 13:19] LABS: ETHANOL BLOOD < 10 mg/dL
[2017-08-12 13:22] LABS: AMMONIA 33 uMol/L (<32)
[2017-08-12] MEDS: LACTULOSE 20G/30ML UDC PO SCH ×2 (14:57→21:26)
[2017-08-12 16:00] VITALS: BP 136/73
[2017-08-12 20:00] VITALS: BP 108/84
[2017-08-13 00:01] VITALS: BP 126/82
[2017-08-13 04:00] VITALS: BP 126/76
[2017-08-13] MEDS: FUROSEMIDE 40MG/4ML VIAL IVP SCH (05:38)
[2017-08-13] MEDS: LACTULOSE 20G/30ML UDC PO SCH ×3 (05:38→21:37)
[2017-08-13 06:44] LABS: BASOPHILS % 1.2 % (0.0-2.0); EOSINOPHILS % 8.2 % (0.0-5.0); HEMATOCRIT. 43.7 % (42.0-52.0); HEMOGLOBIN. 15.6 g/dL (14.0-18.0); LYMPHOCYTES % 33.2 % (20.0-50.0); MEAN CORPUSCULAR HEMOGLOBIN 32.9 pg (28.0-32.0); MEAN PLATELET VOLUME 9.5 fl (7.4-10.4); MONOCYTES % 4.8 % (2.0-8.0); NEUTROPHILS % 52.6 % (40.0-76.0); PLATELET 156 x1000/uL (130-400); RED BLOOD CELL COUNT 4.75 mill/uL (4.7-6.1); RED CELL DISTRIBUTION WIDTH 16.4 % (11.6-14.6)
[2017-08-13 06:54] LABS: AMMONIA 45 uMol/L (<32)
[2017-08-13 08:00] VITALS: BP 105/79
[2017-08-13] MEDS: ASPIRIN 81MG EC TABLET PO SCH (09:13)
[2017-08-13] MEDS: AMLODIPINE 5MG TABLET PO SCH ×2 (09:14→17:53)
[2017-08-13 12:00] VITALS: BP 109/86
[2017-08-13] MEDS: THIAMINE HCL 100MG TABLET PO SCH (14:29)
[2017-08-13] MEDS: MULTIVITAMINS,THER W-MINERALS TABLET PO SCH (14:29)
[2017-08-13 16:00] VITALS: BP 110/79
[2017-08-13 20:00] VITALS: BP 118/82
[2017-08-13] MEDS: LORAZEPAM 0.5MG TABLET PO PRN (22:12)
[2017-08-14] VITALS: BP 108/80
[2017-08-14 04:00] VITALS: BP 127/87
[2017-08-14] MEDS: LACTULOSE 20G/30ML UDC PO SCH (05:19)
[2017-08-14] MEDS: LORAZEPAM 0.5MG TABLET PO PRN (05:19)
[2017-08-14 06:45] LABS: BASOPHILS % 1.2 % (0.0-2.0); EOSINOPHILS % 5.7 % (0.0-5.0); HEMATOCRIT. 50.2 % (42.0-52.0); HEMOGLOBIN. 17.6 g/dL (14.0-18.0); LYMPHOCYTES % 33.2 % (20.0-50.0); MEAN CORPUSCULAR HEMOGLOBIN 32.9 pg (28.0-32.0); MEAN CORPUSCULAR VOLUME 93.7 fL (80.0-94.0); MEAN PLATELET VOLUME 9.5 fl (7.4-10.4); MONOCYTES % 4.4 % (2.0-8.0); NEUTROPHILS % 55.5 % (40.0-76.0); PLATELET 166 x1000/uL (130-400); RED BLOOD CELL COUNT 5.36 mill/uL (4.7-6.1); RED CELL DISTRIBUTION WIDTH 16.1 % (11.6-14.6)
[2017-08-14 06:57] LABS: AMMONIA 24 uMol/L (<32)
[2017-08-14 08:00] VITALS: BP 106/83
[2017-08-14] MEDS: MULTIVITAMINS,THER W-MINERALS TABLET PO SCH (08:46)
[2017-08-14] MEDS: AMLODIPINE 5MG TABLET PO SCH (08:47)
[2017-08-14] MEDS: THIAMINE HCL 100MG TABLET PO SCH (08:47)
[2017-08-14] MEDS: ASPIRIN 81MG EC TABLET PO SCH (08:47)
[2017-08-14] MEDS ORDERED: FOLIC ACID 1MG TABLET PO SCH (09:00)
[2017-08-14 12:03] VITALS: BP 106/83
== END 2017-08-14 15:20 | disposition home or self-care (01) | DRG 194 ==
LOC: EDBEDREQ 05:52 → EDBEDREQTM 05:52 → ER 07:54 → 7WST 07:55 → ENRESERV 10:21
PROVIDERS: ADMIT Internal Medicine; ATTEND Internal Medicine
DX: I13.0 Hypertensive heart and chronic kidney disease with heart failure and stage 1 through stage 4 chronic kidney disease, or unspecified chronic kidney disease (principal); I63.9 Cerebral infarction, unspecified; G92 Toxic encephalopathy; N17.9 Acute kidney failure, unspecified; I50.23 Acute on chronic systolic (congestive) heart failure; F14.10 Cocaine abuse, uncomplicated; F12.10 Cannabis abuse, uncomplicated; I42.7 Cardiomyopathy due to drug and external agent; R74.8 Abnormal levels of other serum enzymes; T50.2X5A Adverse effect of carbonic-anhydrase inhibitors, benzothiadiazides and other diuretics, initial encounter; K59.00 Constipation, unspecified; F17.210 Nicotine dependence, cigarettes, uncomplicated; I50.82 Biventricular heart failure; N18.9 Chronic kidney disease, unspecified; E46 Unspecified protein-calorie malnutrition; Z79.899 Other long term (current) drug therapy; Y92.098 Other place in other non-institutional residence as the place of occurrence of the external cause; Z79.82 Long term (current) use of aspirin; Z71.51 Drug abuse counseling and surveillance of drug abuser; Z87.19 Personal history of other diseases of the digestive system; Y92.008 Other place in unspecified non-institutional (private) residence as the place of occurrence of the external cause
CPT/HCPCS: 36415; 70450; 70551; 71045; 74018; 74176; 80048; 80053; 80061; 80305; 81003; 82140; 82150; 82550; 82553; 82607; 82746; 83036; 83690; 83735; 83880; 84439; 84443; 84481; 84484; 85025; 87086; 93005; 96374; 97116; 97162; 97165; 99285; G0482; J1940

== ENCOUNTER 2017-09-14 05:58 | Inpatient (IN) | payer MEDICAID ==
[~2017-09-14] VITALS: Ht 190.5 cm; Wt 68.1 kg
[2017-09-14 08:11] LABS: BASOPHILS % 1.3 % (0.0-2.0); EOSINOPHILS % 6.7 % (0.0-5.0); HEMATOCRIT. 39.8 % (42.0-52.0); HEMOGLOBIN. 14.1 g/dL (14.0-18.0); LYMPHOCYTES % 31.3 % (20.0-50.0); MEAN CORPUSCULAR HEMOGLOBIN 32.9 pg (28.0-32.0); MEAN CORPUSCULAR VOLUME 93.1 fL (80.0-94.0); MEAN PLATELET VOLUME 9.2 fl (7.4-10.4); MONOCYTES % 4.4 % (2.0-8.0); NEUTROPHILS % 56.3 % (40.0-76.0); PLATELET 183 x1000/uL (130-400); RED BLOOD CELL COUNT 4.27 mill/uL (4.7-6.1); RED CELL DISTRIBUTION WIDTH 15.6 % (11.6-14.6)
[2017-09-14 08:18] LABS: CHLORIDE 108 mEq/L (98-107)
[2017-09-14 08:22] LABS: ETHANOL BLOOD < 10 mg/dL
[2017-09-14 10:09] LABS: *AMPHETAMINES SCREEN URINE NEGATIVE (NEGATIVE)
[2017-09-14 10:10] LABS: *BARBITURATES SCREEN URINE NEGATIVE (NEGATIVE); *COCAINE SCREEN URINE PRESUMTIVE POSITIVE (NEGATIVE); METHADONE URINE SCREEN NEGATIVE (NEGATIVE)
[2017-09-14 10:11] LABS: CANNABINOID URINE SCREEN PRESUMTIVE POSITIVE (NEGATIVE); OPIATES URINE SCREEN NEGATIVE (NEGATIVE); PHENCYCLIDINE URINE SCREEN NEGATIVE (NEGATIVE)
[2017-09-14 10:13] LABS: *BENZODIAZEPINES SCREEN URINE PRESUMTIVE POSITIVE (NEGATIVE)
[2017-09-14 11:44] VITALS: BP 132/106
[2017-09-14 12:00] VITALS: BP 132/106
[2017-09-14] MEDS ORDERED: DIPHENHYDRAMINE 50MG/ML VIAL IV PRN (12:45)
[2017-09-14] MEDS ORDERED: MAGNESIUM/ALUMINUM HYDROXIDE/SIMETHICONE 30ML UDC PO PRN (12:45)
[2017-09-14] MEDS ORDERED: GUAIFENESIN 200MG/10ML SUGAR FREE UDC PO PRN (12:45)
[2017-09-14] MEDS ORDERED: LORAZEPAM 0.5MG TABLET PO PRN ×2 (12:45→21:45)
[2017-09-14] MEDS ORDERED: HYDROCODONE/ACETAMINOPHEN 5/325MG TABLET PO PRN (12:45)
[2017-09-14] MEDS ORDERED: ACETAMINOPHEN 650MG/20.3ML UDC GT PRN (12:45)
[2017-09-14] MEDS ORDERED: DOCUSATE SODIUM 100MG CAPSULE PO PRN (12:45)
[2017-09-14] MEDS ORDERED: ONDANSETRON HCL 4MG/2ML INJ IV PRN (12:45)
[2017-09-14] MEDS ORDERED: ACETAMINOPHEN 650MG SUPP PR PRN (12:45)
[2017-09-14] MEDS ORDERED: ACETAMINOPHEN 325MG TABLET PO PRN (12:45)
[2017-09-14] MEDS ORDERED: HYDROCODONE/ACETAMINOPHEN 10/325MG TABLET PO PRN (12:45)
[2017-09-14] MEDS ORDERED: ONDANSETRON 4MG ODT PO PRN (13:00)
[2017-09-14] MEDS: LOSARTAN POTASSIUM 25 MG TABLET PO SCH (13:43)
[2017-09-14] MEDS: SPIRONOLACTONE 25MG TABLET PO SCH (13:43)
[2017-09-14] MEDS: ASPIRIN 81MG TABLET PO SCH (13:43)
[2017-09-14] MEDS ORDERED: CLONIDINE 0.2MG TABLET PO PRN (14:45)
[2017-09-14] MEDS ORDERED: CLONIDINE 0.1MG TABLET PO PRN (14:45)
[2017-09-14] MEDS: IPRATROPIUM/ALBUTEROL 0.5-3(2.5)MG/3ML NEB INH SCH ×2 (15:14→20:34)
[2017-09-14 15:55] LABS: CREATINE KINASE MB FRACTION 2.7 ng/mL (0.5-3.6)
[2017-09-14 16:00] VITALS: BP 131/102
[2017-09-14] MEDS: FUROSEMIDE 40MG/4ML VIAL IVP SCH (16:21)
[2017-09-14 19:45] LABS: CLARITY URINE CLEAR (CLEAR); COLOR URINE YELLOW (YELLOW); KETONES URINE NEGATIVE (NEGATIVE); LEUKOCYTE ESTERASE URINE TRACE (NEGATIVE); NITRITE URINE NEGATIVE (NEGATIVE); OCCULT BLOOD URINE NEGATIVE (NEGATIVE); PH URINE 6.5 (4.5-8.0); PROTEIN URINE TRACE (NEGATIVE); SPECIFIC GRAVITY URINE 1.008 (1.005-1.030)
[2017-09-14 20:00] VITALS: BP 129/102
[2017-09-14] MEDS: AMLODIPINE 2.5MG TABLET PO SCH (21:45)
[2017-09-15] VITALS: BP 122/95
[2017-09-15] MEDS: LORAZEPAM 0.5MG TABLET PO PRN ×2 (00:06→18:22)
[2017-09-15] MEDS: IPRATROPIUM/ALBUTEROL 0.5-3(2.5)MG/3ML NEB INH SCH ×4 (00:38→21:50)
[2017-09-15 04:00] VITALS: BP 126/95
[2017-09-15 06:34] LABS: BASOPHILS % 0.7 % (0.0-2.0); EOSINOPHILS % 1.7 % (0.0-5.0); HEMATOCRIT. 41.5 % (42.0-52.0); HEMOGLOBIN. 14.7 g/dL (14.0-18.0); LYMPHOCYTES % 25.3 % (20.0-50.0); MEAN CORPUSCULAR HEMOGLOBIN 33.3 pg (28.0-32.0); MEAN CORPUSCULAR VOLUME 93.9 fL (80.0-94.0); MEAN PLATELET VOLUME 9.4 fl (7.4-10.4); MONOCYTES % 6.4 % (2.0-8.0); NEUTROPHILS % 65.9 % (40.0-76.0); PLATELET 186 x1000/uL (130-400); RED BLOOD CELL COUNT 4.41 mill/uL (4.7-6.1); RED CELL DISTRIBUTION WIDTH 15.6 % (11.6-14.6)
[2017-09-15] MEDS: FUROSEMIDE 40MG/4ML VIAL IVP SCH ×2 (06:38→18:17)
[2017-09-15] MEDS: ASPIRIN 81MG TABLET PO SCH (08:47)
[2017-09-15] MEDS: SPIRONOLACTONE 25MG TABLET PO SCH (08:47)
[2017-09-15] MEDS: LOSARTAN POTASSIUM 25 MG TABLET PO SCH (08:47)
[2017-09-15] MEDS: AMLODIPINE 2.5MG TABLET PO SCH ×2 (08:48→20:43)
[2017-09-15 09:07] LABS: CHLORIDE 106 mEq/L (98-107)
[2017-09-15 09:15] LABS: PHOSPHORUS 3.5 mg/dL (2.5-4.9)
[2017-09-15 09:16] LABS: LDL CHOLESTEROL 76 mg/dL (5-100)
[2017-09-15 09:17] LABS: HDL CHOLESTEROL 46 mg/dL (40-59)
[2017-09-15 09:23] LABS: T4 FREE 1.41 ng/dL (0.76-1.46)
[2017-09-15 12:00] VITALS: BP 110/78
[2017-09-15 16:00] VITALS: BP 115/79
[2017-09-15 20:15] VITALS: BP 107/91
[2017-09-16] VITALS: BP 100/70
[2017-09-16] MEDS: IPRATROPIUM/ALBUTEROL 0.5-3(2.5)MG/3ML NEB INH SCH ×4 (01:48→20:43)
[2017-09-16] MEDS: LORAZEPAM 0.5MG TABLET PO PRN (03:27)
[2017-09-16 03:45] VITALS: BP 113/92
[2017-09-16] MEDS: FUROSEMIDE 40MG/4ML VIAL IVP SCH (06:56)
[2017-09-16 08:00] VITALS: BP 122/93
[2017-09-16 08:19] LABS: BASOPHILS % 0.8 % (0.0-2.0); EOSINOPHILS % 5.9 % (0.0-5.0); HEMATOCRIT. 39.9 % (42.0-52.0); LYMPHOCYTES % 28.4 % (20.0-50.0); MEAN CORPUSCULAR HEMOGLOBIN 32.7 pg (28.0-32.0); MEAN CORPUSCULAR VOLUME 93.2 fL (80.0-94.0); MEAN PLATELET VOLUME 9.7 fl (7.4-10.4); MONOCYTES % 5.5 % (2.0-8.0); NEUTROPHILS % 59.4 % (40.0-76.0); PLATELET 174 x1000/uL (130-400); RED BLOOD CELL COUNT 4.28 mill/uL (4.7-6.1); RED CELL DISTRIBUTION WIDTH 15.5 % (11.6-14.6)
[2017-09-16] MEDS: LOSARTAN POTASSIUM 25 MG TABLET PO SCH (08:43)
[2017-09-16] MEDS: AMLODIPINE 2.5MG TABLET PO SCH ×2 (08:43→21:00)
[2017-09-16] MEDS: SPIRONOLACTONE 25MG TABLET PO SCH (08:44)
[2017-09-16] MEDS: ASPIRIN 81MG TABLET PO SCH (08:44)
[2017-09-16 12:00] VITALS: BP 118/86
[2017-09-16 13:26] LABS: BG BASE EXCESS 1.1 mmol/L (-2.0-2.0); BG CARBOXYHEMOGLOBIN 0.9 % (0.5-1.5); BG FRACTION INSPIRED OXYGEN 21; BG HCO3 ACT 24.5 mmol/L (22.0-26.0); BG METHEMOGLOBIN 0.3 % (0.0-1.5); BG OXYGEN SATURATION 89.9 % (92.0-98.5); BG OXYHEMOGLOBIN 88.8 % (94.0-97.0); BG PCO2 35.1 mmHg (35.0-45.0); BG PH 7.461 (7.350-7.450); BG PO2 63.1 mmHg (75.0-100.0); BG SAMPLE SITE LEFT RADIAL; BG TOTAL HEMOGLOBIN 15.1 g/dL (12.0-18.0); BG VENT MODE ROOM AIR
[2017-09-16 16:00] VITALS: BP 116/77
[2017-09-16 20:00] VITALS: BP 99/75
[2017-09-16] MEDS: FUROSEMIDE 40MG TABLET PO SCH (21:00)
[2017-09-17] VITALS: BP 109/83
[2017-09-17] MEDS: IPRATROPIUM/ALBUTEROL 0.5-3(2.5)MG/3ML NEB INH SCH ×2 (01:04→09:17)
[2017-09-17 04:00] VITALS: BP 122/91
[2017-09-17 07:56] VITALS: BP 126/88
[2017-09-17] MEDS: SPIRONOLACTONE 25MG TABLET PO SCH (08:45)
[2017-09-17] MEDS: FUROSEMIDE 40MG TABLET PO SCH (08:45)
[2017-09-17] MEDS: LOSARTAN POTASSIUM 25 MG TABLET PO SCH (08:45)
[2017-09-17] MEDS: ASPIRIN 81MG TABLET PO SCH (08:46)
[2017-09-17] MEDS: AMLODIPINE 2.5MG TABLET PO SCH (08:46)
[2017-09-17 12:00] VITALS: BP 116/78
[2017-09-17] MEDS: LORAZEPAM 0.5MG TABLET PO PRN (12:56)
== END 2017-09-17 14:57 | disposition left against medical advice (07) | DRG 469 ==
LOC: ER 05:58 → 6WST 10:12 → EDBEDREQ 10:16 → EDBEDREQTM 10:16 → ENRESERV 10:39
PROVIDERS: ADMIT Internal Medicine; ATTEND Internal Medicine
DX: N17.9 Acute kidney failure, unspecified (principal); J96.00 Acute respiratory failure, unspecified whether with hypoxia or hypercapnia; I47.2 Ventricular tachycardia; I50.23 Acute on chronic systolic (congestive) heart failure; E44.0 Moderate protein-calorie malnutrition; I42.0 Dilated cardiomyopathy; E88.09 Other disorders of plasma-protein metabolism, not elsewhere classified; Z99.81 Dependence on supplemental oxygen; I13.0 Hypertensive heart and chronic kidney disease with heart failure and stage 1 through stage 4 chronic kidney disease, or unspecified chronic kidney disease; T50.2X5A Adverse effect of carbonic-anhydrase inhibitors, benzothiadiazides and other diuretics, initial encounter; F41.9 Anxiety disorder, unspecified; D63.8 Anemia in other chronic diseases classified elsewhere; F14.10 Cocaine abuse, uncomplicated; F17.210 Nicotine dependence, cigarettes, uncomplicated; N18.9 Chronic kidney disease, unspecified; Z53.21 Procedure and treatment not carried out due to patient leaving prior to being seen by health care provider; Z79.82 Long term (current) use of aspirin; Z79.899 Other long term (current) drug therapy; Z91.19 Patient's noncompliance with other medical treatment and regimen; Z68.1 Body mass index [BMI] 19.9 or less, adult
CPT/HCPCS: 36415; 36600; 71045; 80048; 80053; 80061; 80305; 81003; 82375; 82550; 82553; 82805; 82962; 83690; 83735; 83880; 84100; 84439; 84443; 84481; 84484; 85025; 93005; 93306; 94640; 96374; 99285; G0482; J1940; J7620

== ENCOUNTER 2017-10-11 11:43 | Inpatient (IN) | payer MEDICAID ==
[~2017-10-11] VITALS: Ht 190.5 cm; Wt 77.1 kg
[~2017-10-11 11:43] MED LIST changes: -AMLO2.5T45 PO; -FERR325T6 PO; -LORA1TAB PO
[2017-10-11] MEDS ORDERED: ASPIRIN 325MG TABLET PO ONE (12:30)
[2017-10-11] MEDS ORDERED: LORAZEPAM 2MG/ML CPJ IV ONE (12:30)
[2017-10-11] MEDS ORDERED: NITROGLYCERIN OINT 1GM/INCH UDPKT TD ONE (12:30)
[2017-10-11] MEDS ORDERED: CEFTRIAXONE 2 G PREMIX 50 ML IV ONE (12:45)
[2017-10-11] MEDS ORDERED: AZITHROMYCIN 500 MG TABLET PO ONE (12:45)
[2017-10-11 14:00] LABS: BASOPHILS % 0.9 % (0.0-2.0); EOSINOPHILS % 1.4 % (0.0-5.0); HEMATOCRIT. 46.7 % (42.0-52.0); HEMOGLOBIN. 15.8 g/dL (14.0-18.0); LYMPHOCYTES % 23.6 % (20.0-50.0); MEAN CORPUSCULAR HEMOGLOBIN 32.3 pg (28.0-32.0); MEAN CORPUSCULAR VOLUME 95.6 fL (80.0-94.0); MEAN PLATELET VOLUME 9.8 fl (7.4-10.4); MONOCYTES % 4.9 % (2.0-8.0); NEUTROPHILS % 69.2 % (40.0-76.0); PLATELET 201 x1000/uL (130-400); RED BLOOD CELL COUNT 4.89 mill/uL (4.7-6.1); RED CELL DISTRIBUTION WIDTH 15.9 % (11.6-14.6)
[2017-10-11 14:04] LABS: CHLORIDE 106 mEq/L (98-107)
[2017-10-11 14:07] LABS: INR 1.3; PROTHROMBIN TIME 12.9 sec (9.1-11.1)
[2017-10-11 14:08] LABS: ETHANOL BLOOD < 10 mg/dL
[2017-10-11] MEDS ORDERED: SODIUM BICARBONATE 8.4% 1 MEQ/ML 50ML SYR IV ONE (14:30)
[2017-10-11] MEDS ORDERED: SODIUM POLYSTYRENE SULFONATE 15 G/60 ML BOT PO ONE (14:30)
[2017-10-11] MEDS ORDERED: DEXTROSE 50% WATER 50ML SYRINGE IV ONE (14:30)
[2017-10-11] MEDS ORDERED: INSULIN REGULAR (HUMULIN R) 300UNITS/3ML IV ONE (14:30)
[2017-10-11] MEDS ORDERED: IPRATROPIUM/ALBUTEROL 0.5-3(2.5)MG/3ML NEB HHN PRN (15:15)
[2017-10-11] MEDS ORDERED: MORPHINE SULFATE 4 MG/ML CPJ (NOT FOR IM USE) IV PRN (15:15)
[2017-10-11] MEDS ORDERED: HYDROCODONE/ACETAMINOPHEN 5/325MG TABLET PO PRN (15:15)
[2017-10-11 16:15] LABS: *AMPHETAMINES SCREEN URINE NEGATIVE (NEGATIVE); *BARBITURATES SCREEN URINE NEGATIVE (NEGATIVE); *BENZODIAZEPINES SCREEN URINE PRESUMTIVE POSITIVE (NEGATIVE); *COCAINE SCREEN URINE PRESUMTIVE POSITIVE (NEGATIVE); METHADONE URINE SCREEN NEGATIVE (NEGATIVE); OPIATES URINE SCREEN NEGATIVE (NEGATIVE)
[2017-10-11 16:16] LABS: CANNABINOID URINE SCREEN PRESUMTIVE POSITIVE (NEGATIVE); PHENCYCLIDINE URINE SCREEN NEGATIVE (NEGATIVE)
[2017-10-11 18:30] VITALS: BP 124/99
[2017-10-11 18:40] VITALS: BP 124/99
[2017-10-11 19:30] VITALS: BP 125/97
[2017-10-11] MEDS: FUROSEMIDE 100MG/10ML VIAL IVP SCH (19:44)
[2017-10-11 20:00] VITALS: BP 125/97
[2017-10-11] MEDS: CARVEDILOL 3.125 MG TABLET PO SCH (20:16)
[2017-10-11] MEDS: LEVOFLOXACIN 500MG TABLET PO SCH (20:16)
[2017-10-11] MEDS: ENOXAPARIN 40MG/0.4ML SYR SUBCUT SCH (20:17)
[2017-10-12] VITALS (8 sets, daily range): BP systolic 104–138; BP diastolic 73–111
[2017-10-12] MEDS ORDERED: CLONIDINE 0.1MG TABLET PO PRN (01:00)
[2017-10-12] MEDS: LORAZEPAM 0.5MG TABLET PO PRN ×2 (01:03→13:33)
[2017-10-12] MEDS: FUROSEMIDE 100MG/10ML VIAL IVP SCH ×2 (04:49→16:29)
[2017-10-12 07:37] LABS: HEMATOCRIT 38.7 % (42.0-52.0); HEMOGLOBIN 13.4 g/dL (14.0-18.0); MEAN CORPUSCULAR HEMOGLOBIN 32.2 pg (28.0-32.0); MEAN CORPUSCULAR VOLUME 93.2 fL (80.0-94.0); PLATELET 165 x1000/uL (130-400); RED BLOOD CELL COUNT 4.15 mill/uL (4.7-6.1); RED CELL DISTRIBUTION WIDTH 15.8 % (11.6-14.6)
[2017-10-12] MEDS: SPIRONOLACTONE 25MG TABLET PO SCH (08:30)
[2017-10-12] MEDS: LOSARTAN POTASSIUM 25 MG TABLET PO SCH (08:30)
[2017-10-12] MEDS: ASPIRIN 81MG TABLET PO SCH (08:31)
[2017-10-12] MEDS: CARVEDILOL 3.125 MG TABLET PO SCH ×2 (08:31→20:51)
[2017-10-12 10:51] LABS: BG BASE EXCESS 0.8 mmol/L (-2.0-2.0); BG FRACTION INSPIRED OXYGEN 21; BG HCO3 ACT 20.6 mmol/L (22.0-26.0); BG METHEMOGLOBIN 0.2 % (0.0-1.5); BG OXYGEN SATURATION 92.9 % (92.0-98.5); BG OXYHEMOGLOBIN 91.8 % (94.0-97.0); BG PCO2 22.5 mmHg (35.0-45.0); BG PO2 64.6 mmHg (75.0-100.0); BG SAMPLE SITE RIGHT RADIAL; BG TOTAL HEMOGLOBIN 14.7 g/dL (12.0-18.0); BG VENT MODE ROOM AIR
[2017-10-12] MEDS: LEVOFLOXACIN 500MG TABLET PO SCH (11:48)
[2017-10-12] MEDS ORDERED: IPRATROPIUM/ALBUTEROL 0.5-3(2.5)MG/3ML NEB HHN PRN (15:30)
[2017-10-12] MEDS: ENOXAPARIN 40MG/0.4ML SYR SUBCUT SCH (20:51)
[2017-10-12 21:06] LABS: TOTAL IRON BINDING CAPACITY 409 ug/dL (250-450)
[2017-10-12 21:08] LABS: AMMONIA 39 uMol/L (<32)
[2017-10-12 21:28] LABS: FOLIC ACID (FOLATE) SERUM 14.5 ng/mL (>5.38)
[2017-10-12 21:32] LABS: HEPATITIS B SURFACE ANTIGEN NEGATIVE
[2017-10-12 22:00] LABS: HEPATITIS B CORE AB IGM NEGATIVE
[2017-10-12 22:01] LABS: HEPATITIS A AB IGM NEGATIVE (NEGATIVE)
[2017-10-13 03:45] VITALS: BP 122/92
[2017-10-13 04:00] VITALS: BP 122/96
[2017-10-13 06:36] LABS: EOSINOPHILS % 3.1 % (0.0-5.0); HEMATOCRIT. 43.9 % (42.0-52.0); HEMOGLOBIN. 15.2 g/dL (14.0-18.0); LYMPHOCYTES % 25.5 % (20.0-50.0); MEAN CORPUSCULAR HEMOGLOBIN 32.4 pg (28.0-32.0); MEAN CORPUSCULAR VOLUME 93.8 fL (80.0-94.0); MEAN PLATELET VOLUME 9.9 fl (7.4-10.4); MONOCYTES % 6.5 % (2.0-8.0); NEUTROPHILS % 63.9 % (40.0-76.0); PLATELET 180 x1000/uL (130-400); RED BLOOD CELL COUNT 4.68 mill/uL (4.7-6.1); RED CELL DISTRIBUTION WIDTH 15.7 % (11.6-14.6)
[2017-10-13 07:02] LABS: PHOSPHORUS 3.8 mg/dL (2.5-4.9)
[2017-10-13 08:30] VITALS: BP 110/62
[2017-10-13] MEDS: PANTOPRAZOLE SODIUM 40 MG/VIAL IV SCH (09:32)
[2017-10-13] MEDS: FUROSEMIDE 100MG/10ML VIAL IVP SCH ×2 (09:32→17:33)
[2017-10-13] MEDS: SPIRONOLACTONE 25MG TABLET PO SCH (09:40)
[2017-10-13] MEDS: MULTIVITAMINS,THER W-MINERALS TABLET PO SCH (09:40)
[2017-10-13] MEDS: ASPIRIN 81MG TABLET PO SCH (09:40)
[2017-10-13] MEDS: LEVOFLOXACIN 500MG TABLET PO SCH (09:40)
[2017-10-13] MEDS: THIAMINE HCL 100MG TABLET PO SCH (09:41)
[2017-10-13] MEDS: LOSARTAN POTASSIUM 25 MG TABLET PO SCH (09:41)
[2017-10-13] MEDS: CARVEDILOL 3.125 MG TABLET PO SCH ×2 (09:41→20:50)
[2017-10-13] MEDS: FOLIC ACID 1MG TABLET PO SCH (09:41)
[2017-10-13 11:03] LABS: T4 FREE 1.19 ng/dL (0.76-1.46)
[2017-10-13 12:00] VITALS: BP 121/88
[2017-10-13 13:25] LABS: AMMONIA 43 uMol/L (<32)
[2017-10-13 15:25] LABS: BG BASE EXCESS 0.4 mmol/L (-2.0-2.0); BG CARBOXYHEMOGLOBIN 0.7 % (0.5-1.5); BG DEOXYHEMOGLOBIN 7.8 % (0.0-5.0); BG HCO3 ACT 25.7 mmol/L (22.0-26.0); BG METHEMOGLOBIN 0.3 % (0.0-1.5); BG OXYGEN SATURATION 92.1 % (92.0-98.5); BG OXYHEMOGLOBIN 91.2 % (94.0-97.0); BG PCO2 43.8 mmHg (35.0-45.0); BG PH 7.386 (7.350-7.450); BG SAMPLE SITE RIGHT RADIAL; BG VENT MODE NASAL CANNULA
[2017-10-13 16:00] VITALS: BP 119/93
[2017-10-13 20:00] VITALS: BP 101/80
[2017-10-13] MEDS: ENOXAPARIN 40MG/0.4ML SYR SUBCUT SCH (20:51)
[2017-10-13] MEDS: IPRATROPIUM/ALBUTEROL 0.5-3(2.5)MG/3ML NEB HHN SCH (21:29)
[2017-10-14] VITALS: BP 108/70
[2017-10-14] MEDS: IPRATROPIUM/ALBUTEROL 0.5-3(2.5)MG/3ML NEB HHN SCH ×3 (03:19→14:02)
[2017-10-14 04:00] VITALS: BP 110/57
[2017-10-14 07:10] LABS: BASOPHILS % 0.9 % (0.0-2.0); EOSINOPHILS % 2.2 % (0.0-5.0); HEMOGLOBIN. 15.9 g/dL (14.0-18.0); LYMPHOCYTES % 31.4 % (20.0-50.0); MEAN CORPUSCULAR HEMOGLOBIN 32.3 pg (28.0-32.0); MEAN CORPUSCULAR VOLUME 93.6 fL (80.0-94.0); MONOCYTES % 5.4 % (2.0-8.0); NEUTROPHILS % 60.1 % (40.0-76.0); PLATELET 187 x1000/uL (130-400); RED BLOOD CELL COUNT 4.92 mill/uL (4.7-6.1); RED CELL DISTRIBUTION WIDTH 15.9 % (11.6-14.6)
[2017-10-14 07:48] LABS: AMMONIA 34 uMol/L (<32)
[2017-10-14 08:00] VITALS: BP 109/87
[2017-10-14 08:39] LABS: CLARITY URINE CLEAR (CLEAR); COLOR URINE DARK YELLOW (YELLOW); KETONES URINE NEGATIVE (NEGATIVE); LEUKOCYTE ESTERASE URINE 2+ (NEGATIVE); NITRITE URINE NEGATIVE (NEGATIVE); OCCULT BLOOD URINE NEGATIVE (NEGATIVE); PH URINE 5.5 (4.5-8.0); PROTEIN URINE 2+ (NEGATIVE); SPECIFIC GRAVITY URINE 1.015 (1.005-1.030)
[2017-10-14] MEDS: LOSARTAN POTASSIUM 25 MG TABLET PO SCH (09:00)
[2017-10-14] MEDS: CARVEDILOL 3.125 MG TABLET PO SCH (09:00)
[2017-10-14] MEDS: PANTOPRAZOLE SODIUM 40 MG/VIAL IV SCH (09:16)
[2017-10-14] MEDS: FUROSEMIDE 100MG/10ML VIAL IVP SCH (09:16)
[2017-10-14] MEDS: SPIRONOLACTONE 25MG TABLET PO SCH (09:17)
[2017-10-14] MEDS: ASPIRIN 81MG TABLET PO SCH (09:18)
[2017-10-14] MEDS: FOLIC ACID 1MG TABLET PO SCH (09:18)
[2017-10-14] MEDS: MULTIVITAMINS,THER W-MINERALS TABLET PO SCH (09:18)
[2017-10-14] MEDS: THIAMINE HCL 100MG TABLET PO SCH (09:19)
[2017-10-14 09:36] LABS: CHLORIDE 100 mEq/L (98-107)
[2017-10-14] MEDS: LEVOFLOXACIN 500MG TABLET PO SCH (11:36)
[2017-10-14 12:00] VITALS: BP 107/85
[2017-10-14 12:47] LABS: PHOSPHORUS 4.4 mg/dL (2.5-4.9)
[2017-10-14 12:52] LABS: CREATINE KINASE MB FRACTION 3.4 ng/mL (0.5-3.6)
[2017-10-14] MEDS ORDERED: LOSA25TA3 PO (15:42)
[2017-10-14] MEDS ORDERED: FOLI-43 PO (15:42)
[2017-10-14] MEDS ORDERED: LEVO500T2 PO (15:42)
[2017-10-14] MEDS ORDERED: SPIR25TA PO (15:42)
[2017-10-14] MEDS ORDERED: THIA100T72 PO (15:42)
[2017-10-14 16:00] VITALS: BP 111/92
[2017-10-14 16:26] VITALS: BP 158/119
== END 2017-10-14 18:30 | disposition home or self-care (01) | DRG 816 ==
LOC: ER 12:01 → 7WST 14:54 → ENRESERV 16:59
PROVIDERS: ADMIT Internal Medicine; ATTEND Internal Medicine
DX: T40.5X1A Poisoning by cocaine, accidental (unintentional), initial encounter (principal); J96.01 Acute respiratory failure with hypoxia; G92 Toxic encephalopathy; I50.23 Acute on chronic systolic (congestive) heart failure; N17.9 Acute kidney failure, unspecified; J18.9 Pneumonia, unspecified organism; I13.0 Hypertensive heart and chronic kidney disease with heart failure and stage 1 through stage 4 chronic kidney disease, or unspecified chronic kidney disease; I42.0 Dilated cardiomyopathy; E87.5 Hyperkalemia; E44.1 Mild protein-calorie malnutrition; J44.0 Chronic obstructive pulmonary disease with (acute) lower respiratory infection; N18.9 Chronic kidney disease, unspecified; F14.10 Cocaine abuse, uncomplicated; D64.9 Anemia, unspecified; F17.210 Nicotine dependence, cigarettes, uncomplicated; F41.9 Anxiety disorder, unspecified; F12.10 Cannabis abuse, uncomplicated; I49.3 Ventricular premature depolarization; E80.6 Other disorders of bilirubin metabolism; J44.9 Chronic obstructive pulmonary disease, unspecified; R00.0 Tachycardia, unspecified; R07.89 Other chest pain; Z79.82 Long term (current) use of aspirin; Z79.899 Other long term (current) drug therapy; Z71.6 Tobacco abuse counseling; Z71.51 Drug abuse counseling and surveillance of drug abuser; Z68.21 Body mass index [BMI] 21.0-21.9, adult
CPT/HCPCS: 36415; 36600; 70450; 70551; 71045; 76700; 78227; 80048; 80053; 80076; 80305; 81003; 82140; 82375; 82553; 82607; 82728; 82746; 82805; 83036; 83540; 83550; 83735; 83880; 84100; 84153; 84439; 84443; 84481; 84484; 85025; 85027; 85379; 85610; 86705; 86709; 86803; 87040; 87086; 87340; 93005; 94640; 96365; 96375; 99291; A9537; C9113; G0482; J0696; J1650; J1815; J1940; J2060; J3490; J7620; G0103

== ENCOUNTER 2017-10-20 09:54 | Emergency (ER) | payer MEDICAID ==
[~2017-10-20] VITALS: Ht 182.9 cm; Wt 82.0 kg
[~2017-10-20 09:54] MED LIST changes: +FOLI-43 PO; -FURO-151 MT; +LEVO500T2 PO; -LOSA25TA12 PO; +LOSA25TA3 PO; +SPIR25TA PO; +THIA100T72 PO
[2017-10-20 11:13] LABS: BASOPHILS % 1.4 % (0.0-2.0); EOSINOPHILS % 7.7 % (0.0-5.0); HEMATOCRIT. 39.9 % (42.0-52.0); LYMPHOCYTES % 29.2 % (20.0-50.0); MEAN CORPUSCULAR HEMOGLOBIN 32.5 pg (28.0-32.0); MEAN PLATELET VOLUME 8.9 fl (7.4-10.4); MONOCYTES % 9.4 % (2.0-8.0); NEUTROPHILS % 52.3 % (40.0-76.0); PLATELET 187 x1000/uL (130-400)
[2017-10-20 11:21] LABS: INR 1.3; PROTHROMBIN TIME 12.6 sec (9.1-11.1)
[2017-10-20 11:22] LABS: CHLORIDE 105 mEq/L (98-107)
[2017-10-20 16:05] VITALS: BP 128/75
== END 2017-10-20 17:22 | disposition home or self-care (01) ==
LOC: ER 11:02
DX: I20.8 Other forms of angina pectoris (principal); R79.89 Other specified abnormal findings of blood chemistry; R74.0 Nonspecific elevation of levels of transaminase and lactic acid dehydrogenase [LDH]; R00.0 Tachycardia, unspecified; I51.7 Cardiomegaly; F14.10 Cocaine abuse, uncomplicated; M79.605 Pain in left leg; M79.604 Pain in right leg; I13.0 Hypertensive heart and chronic kidney disease with heart failure and stage 1 through stage 4 chronic kidney disease, or unspecified chronic kidney disease; N18.9 Chronic kidney disease, unspecified; I50.9 Heart failure, unspecified; I25.2 Old myocardial infarction; Z79.82 Long term (current) use of aspirin; Z79.899 Other long term (current) drug therapy
CPT/HCPCS: 36415; 71045; 80053; 83880; 84484; 85025; 85610; 93005; 99285

== ENCOUNTER 2018-05-18 10:52 | Inpatient (IN) | payer MEDICAID ==
[~2018-05-18] VITALS: Ht 190.5 cm; Wt 74.8 kg
[2018-05-18 13:11] LABS: BASOPHILS % 1.6 % (0.0-2.0); EOSINOPHILS % 8.1 % (0.0-5.0); HEMATOCRIT. 42.1 % (42.0-52.0); HEMOGLOBIN. 14.8 g/dL (14.0-18.0); LYMPHOCYTES % 24.3 % (20.0-50.0); MEAN CORPUSCULAR HEMOGLOBIN 32.6 pg (28.0-32.0); MEAN PLATELET VOLUME 8.2 fl (7.4-10.4); MONOCYTES % 7.4 % (2.0-8.0); NEUTROPHILS % 58.6 % (40.0-76.0); PLATELET 166 x1000/uL (130-400); RED BLOOD CELL COUNT 4.53 mill/uL (4.7-6.1); RED CELL DISTRIBUTION WIDTH 15.6 % (11.6-14.6)
[2018-05-18 13:17] LABS: CHLORIDE 104 mEq/L (98-107)
[2018-05-18 13:18] LABS: INR 1.2; PROTHROMBIN TIME 12.2 sec (9.6-11.0)
[2018-05-18 13:56] LABS: CLARITY URINE CLEAR (CLEAR); COLOR URINE YELLOW (YELLOW); KETONES URINE NEGATIVE (NEGATIVE); LEUKOCYTE ESTERASE URINE 1+ (NEGATIVE); NITRITE URINE NEGATIVE (NEGATIVE); OCCULT BLOOD URINE TRACE (NEGATIVE); PH URINE 6.5 (4.5-8.0); PROTEIN URINE NEGATIVE (NEGATIVE)
[2018-05-18] MEDS ORDERED: FUROSEMIDE 100MG/10ML VIAL IVP ONE (14:30)
[2018-05-18] MEDS ORDERED: ASPIRIN 81MG TABLET PO ONE (14:30)
[2018-05-18] MEDS ORDERED: ONDANSETRON HCL 4MG/2ML INJ IV PRN (15:30)
[2018-05-18] MEDS ORDERED: GUAIFENESIN 200MG/10ML SUGAR FREE UDC PO PRN (15:30)
[2018-05-18] MEDS ORDERED: ACETAMINOPHEN 325MG TABLET PO PRN (15:30)
[2018-05-18] MEDS ORDERED: HYDROCODONE/ACETAMINOPHEN 5/325MG TABLET PO PRN (15:30)
[2018-05-18] MEDS ORDERED: IPRATROPIUM/ALBUTEROL 0.5-3(2.5)MG/3ML NEB INH PRN (15:30)
[2018-05-18] MEDS ORDERED: DIPHENHYDRAMINE 50MG/ML VIAL IV PRN (15:30)
[2018-05-18] MEDS ORDERED: DOCUSATE SODIUM 100MG CAPSULE PO PRN (15:30)
[2018-05-18 16:11] LABS: PHOSPHORUS 3.6 mg/dL (2.5-4.9)
[2018-05-18 16:38] LABS: HEPATITIS B SURFACE ANTIGEN NEGATIVE
[2018-05-18 17:07] LABS: HEPATITIS A AB IGM NEGATIVE (NEGATIVE)
[2018-05-18 19:49] VITALS: BP 111/83
[2018-05-18] MEDS ORDERED: FURO80TA3 PO (20:02)
[2018-05-18 20:17] VITALS: BP 104/77
[2018-05-18] MEDS ORDERED: DEXTROSE 50% WATER 50ML SYRINGE IV PRN (22:00)
[2018-05-19] VITALS (7 sets, daily range): BP systolic 97–159; BP diastolic 59–97
[2018-05-19] MEDS: CARVEDILOL 3.125 MG TABLET PO SCH ×2 (06:40→20:49)
[2018-05-19 06:52] LABS: BASOPHILS % 1.3 % (0.0-2.0); EOSINOPHILS % 12.1 % (0.0-5.0); HEMATOCRIT. 46.8 % (42.0-52.0); HEMOGLOBIN. 16.3 g/dL (14.0-18.0); LYMPHOCYTES % 30.1 % (20.0-50.0); MEAN CORPUSCULAR HEMOGLOBIN 32.2 pg (28.0-32.0); MEAN CORPUSCULAR VOLUME 92.6 fL (80.0-94.0); MEAN PLATELET VOLUME 8.8 fl (7.4-10.4); MONOCYTES % 4.6 % (2.0-8.0); NEUTROPHILS % 51.9 % (40.0-76.0); PLATELET 179 x1000/uL (130-400); RED BLOOD CELL COUNT 5.05 mill/uL (4.7-6.1); RED CELL DISTRIBUTION WIDTH 15.8 % (11.6-14.6)
[2018-05-19] MEDS: BLOOD SUGAR DIAGNOSTIC STRIP TEST SCH ×4 (06:52→20:58)
[2018-05-19] MEDS: INSULIN LISPRO 100 UNITS/ML SUBCUT SCH ×4 (06:52→20:58)
[2018-05-19] MEDS ORDERED: FUROSEMIDE 40MG TABLET PO SCH (07:15)
[2018-05-19 07:31] LABS: CHLORIDE 104 mEq/L (98-107)
[2018-05-19 07:41] LABS: HDL CHOLESTEROL 69 mg/dL (40-59)
[2018-05-19 07:42] LABS: LDL CHOLESTEROL 78 mg/dL (5-100)
[2018-05-19] MEDS ORDERED: THIAMINE MONONITRATE 100 MG PO SCH (09:00)
[2018-05-19] MEDS ORDERED: MEDICATION NOT ON FORMULARY EA (Losartan Potassium (Cozaar) 25 MG) PO SCH (09:00)
[2018-05-19] MEDS ORDERED: MEDICATION NOT ON FORMULARY EA (Furosemide 80 MG) PO SCH (09:00)
[2018-05-19] MEDS ORDERED: MEDICATION NOT ON FORMULARY EA (Spironolactone 1 TAB) PO SCH (09:00)
[2018-05-19] MEDS ORDERED: MEDICATION NOT ON FORMULARY EA (Aspirin (Aspirin Low Dose) 1 TAB) PO SCH (09:00)
[2018-05-19] MEDS ORDERED: MEDICATION NOT ON FORMULARY EA (Folic Acid 1 MG) PO SCH (09:00)
[2018-05-19] MEDS: THIAMINE HCL 100MG TABLET PO SCH (09:18)
[2018-05-19] MEDS: SPIRONOLACTONE 25MG TABLET PO SCH (09:18)
[2018-05-19] MEDS: ASPIRIN 81MG EC TABLET PO SCH (09:18)
[2018-05-19] MEDS: FOLIC ACID 1MG TABLET PO SCH (09:18)
[2018-05-19] MEDS: LOSARTAN POTASSIUM 25 MG TABLET PO SCH (09:19)
[2018-05-19] MEDS: FUROSEMIDE 100MG/10ML VIAL IVP SCH ×2 (11:58→17:50)
[2018-05-19] MEDS ORDERED: CLOTRIMAZOLE 1% CREAM 30GM TOP SCH (15:30)
[2018-05-19] MEDS ORDERED: CEFTRIAXONE 1 G PREMIX 50 ML IV SCH (16:00)
[2018-05-19 20:45] LABS: *AMPHETAMINES SCREEN URINE NEGATIVE (NEGATIVE); *BARBITURATES SCREEN URINE NEGATIVE (NEGATIVE); *BENZODIAZEPINES SCREEN URINE NEGATIVE (NEGATIVE); *COCAINE SCREEN URINE PRESUMTIVE POSITIVE (NEGATIVE); METHADONE URINE SCREEN NEGATIVE (NEGATIVE); OPIATES URINE SCREEN NEGATIVE (NEGATIVE)
[2018-05-19 20:46] LABS: CANNABINOID URINE SCREEN PRESUMTIVE POSITIVE (NEGATIVE); PHENCYCLIDINE URINE SCREEN NEGATIVE (NEGATIVE)
[2018-05-20] VITALS: BP 97/73
[2018-05-20 04:00] VITALS: BP 118/87
[2018-05-20] MEDS: BLOOD SUGAR DIAGNOSTIC STRIP TEST SCH (06:29)
[2018-05-20] MEDS: FUROSEMIDE 100MG/10ML VIAL IVP SCH (06:29)
[2018-05-20 06:59] LABS: BASOPHILS % 1.1 % (0.0-2.0); EOSINOPHILS % 13.1 % (0.0-5.0); HEMATOCRIT. 43.8 % (42.0-52.0); HEMOGLOBIN. 15.1 g/dL (14.0-18.0); LYMPHOCYTES % 30.1 % (20.0-50.0); MEAN CORPUSCULAR HEMOGLOBIN 32.2 pg (28.0-32.0); MEAN CORPUSCULAR VOLUME 93.2 fL (80.0-94.0); MEAN PLATELET VOLUME 8.8 fl (7.4-10.4); MONOCYTES % 6.1 % (2.0-8.0); NEUTROPHILS % 49.6 % (40.0-76.0); PLATELET 178 x1000/uL (130-400); RED BLOOD CELL COUNT 4.69 mill/uL (4.7-6.1); RED CELL DISTRIBUTION WIDTH 15.4 % (11.6-14.6)
[2018-05-20 08:00] VITALS: BP 110/86
[2018-05-20] MEDS: FOLIC ACID 1MG TABLET PO SCH (08:31)
[2018-05-20] MEDS: THIAMINE HCL 100MG TABLET PO SCH (08:31)
[2018-05-20] MEDS: SPIRONOLACTONE 25MG TABLET PO SCH (08:32)
[2018-05-20] MEDS: CARVEDILOL 3.125 MG TABLET PO SCH (08:32)
[2018-05-20] MEDS: ASPIRIN 81MG EC TABLET PO SCH (08:33)
[2018-05-20] MEDS: LOSARTAN POTASSIUM 25 MG TABLET PO SCH (08:33)
[2018-05-20] MEDS ORDERED: CLOT15CR2 TOP (11:50)
[2018-05-20 12:55] VITALS: BP 110/86
[2018-05-20 13:06] LABS: HIV SCREEN 4G Non Reactive (Non Reactive)
== END 2018-05-20 14:13 | disposition home or self-care (01) | DRG 194 ==
LOC: ER 10:52 → 6WST 15:06 → EDBEDREQ 15:16 → EDBEDREQTM 15:16 → ENRESERV 15:47
PROVIDERS: ADMIT Internal Medicine; ATTEND Internal Medicine
PROC: 0JBR0ZZ Excision of Left Foot Subcutaneous Tissue and Fascia, Open Approach (ICD-10-PCS; principal; 2018-05-20)
PROC: 0HDMXZZ Extraction of Right Foot Skin, External Approach (ICD-10-PCS; 2018-05-20)
DX: I11.0 Hypertensive heart disease with heart failure (principal); E87.2 Acidosis; E46 Unspecified protein-calorie malnutrition; L89.899 Pressure ulcer of other site, unspecified stage; B35.3 Tinea pedis; I50.23 Acute on chronic systolic (congestive) heart failure; I42.0 Dilated cardiomyopathy; F17.210 Nicotine dependence, cigarettes, uncomplicated; F41.9 Anxiety disorder, unspecified; N39.0 Urinary tract infection, site not specified; M20.41 Other hammer toe(s) (acquired), right foot; F14.10 Cocaine abuse, uncomplicated; D63.8 Anemia in other chronic diseases classified elsewhere; N28.9 Disorder of kidney and ureter, unspecified; I25.2 Old myocardial infarction; Z86.73 Personal history of transient ischemic attack (TIA), and cerebral infarction without residual deficits; Z79.82 Long term (current) use of aspirin; Z68.20 Body mass index [BMI] 20.0-20.9, adult
CPT/HCPCS: 36415; 71045; 73130; 80048; 80061; 80305; 82962; 83036; 83605; 83735; 83880; 84100; 84443; 84484; 86705; 86709; 86803; 87340; 87389; 93005; 93306; 93922; 93970; 99291; J0696; J1940

== ENCOUNTER 2018-06-08 10:23 | Inpatient (IN) | payer MEDICAID ==
[~2018-06-08] VITALS: Ht 195.6 cm; Wt 71.7 kg
[~2018-06-08 10:23] MED LIST changes: +CLOT15CR2 TOP; +FURO80TA3 PO; -LEVO500T2 PO; -SPIR25TA PO
[2018-06-08] MEDS ORDERED: NITROGLYCERIN 0.4MG TABLET SL SL PRN (11:15)
[2018-06-08] MEDS ORDERED: ASPIRIN 81MG TABLET PO ONE (11:15)
[2018-06-08 11:31] LABS: BASOPHILS % 1.1 % (0.0-2.0); EOSINOPHILS % 10.5 % (0.0-5.0); HEMATOCRIT. 47.7 % (42.0-52.0); HEMOGLOBIN. 16.3 g/dL (14.0-18.0); LYMPHOCYTES % 28.8 % (20.0-50.0); MEAN CORPUSCULAR HEMOGLOBIN 32.6 pg (28.0-32.0); MEAN CORPUSCULAR VOLUME 95.1 fL (80.0-94.0); MEAN PLATELET VOLUME 8.6 fl (7.4-10.4); MONOCYTES % 5.9 % (2.0-8.0); NEUTROPHILS % 53.7 % (40.0-76.0); PLATELET 204 x1000/uL (130-400); RED BLOOD CELL COUNT 5.02 mill/uL (4.7-6.1)
[2018-06-08 11:57] LABS: CHLORIDE 106 mEq/L (98-107)
[2018-06-08] MEDS ORDERED: CEFTRIAXONE 2 G PREMIX 50 ML IV ONE (12:00)
[2018-06-08] MEDS ORDERED: SODIUM CHLORIDE 0.9% 1,000 ML IV ONE (12:00)
[2018-06-08] MEDS ORDERED: DOXYCYCLINE HYCLATE 100 MG/VIAL IV ONE (12:00)
[2018-06-08 12:01] LABS: ETHANOL BLOOD < 10 mg/dL
[2018-06-08 12:12] LABS: D-DIMER 2.09 mg/L FEU (<0.50); INR 1.2; PROTHROMBIN TIME 12.1 sec (9.6-11.0)
[2018-06-08] MEDS ORDERED: DOXYCYCLINE 100MG in DEXTROSE 5% WATER 100ML IV NR (12:15)
[2018-06-08 12:24] LABS: *AMPHETAMINES SCREEN URINE NEGATIVE (NEGATIVE)
[2018-06-08 12:25] LABS: *BARBITURATES SCREEN URINE NEGATIVE (NEGATIVE); *BENZODIAZEPINES SCREEN URINE NEGATIVE (NEGATIVE); METHADONE URINE SCREEN NEGATIVE (NEGATIVE); OPIATES URINE SCREEN NEGATIVE (NEGATIVE); PHENCYCLIDINE URINE SCREEN NEGATIVE (NEGATIVE)
[2018-06-08 12:26] LABS: *COCAINE SCREEN URINE PRESUMTIVE POSITIVE (NEGATIVE); CANNABINOID URINE SCREEN PRESUMTIVE POSITIVE (NEGATIVE)
[2018-06-08] MEDS ORDERED: HEPARIN 25,000 UNITS PREMIX 500 ML IV ONE (12:30)
[2018-06-08] MEDS ORDERED: ACETAMINOPHEN 325MG TABLET PO PRN (14:00)
[2018-06-08] MEDS ORDERED: GUAIFENESIN 200MG/10ML SUGAR FREE UDC PO PRN (14:00)
[2018-06-08] MEDS ORDERED: MORPHINE SULFATE 4 MG/ML CPJ (NOT FOR IM USE) IV PRN (14:00)
[2018-06-08] MEDS ORDERED: DOCUSATE SODIUM 100MG CAPSULE PO PRN (14:00)
[2018-06-08] MEDS ORDERED: CLONIDINE 0.1MG TABLET PO PRN (14:00)
[2018-06-08] MEDS ORDERED: MAGNESIUM/ALUMINUM HYDROXIDE/SIMETHICONE 30ML UDC PO PRN (14:00)
[2018-06-08] MEDS ORDERED: IPRATROPIUM/ALBUTEROL 0.5-3(2.5)MG/3ML NEB INH PRN (14:00)
[2018-06-08] MEDS ORDERED: ONDANSETRON HCL 4MG/2ML INJ IV PRN (14:00)
[2018-06-08 14:34] LABS: PHOSPHORUS 3.6 mg/dL (2.5-4.9)
[2018-06-08 14:38] LABS: CREATINE KINASE MB FRACTION 4.4 ng/mL (0.5-3.6)
[2018-06-08 18:09] VITALS: BP 128/96
[2018-06-08] MEDS: SPIRONOLACTONE 25MG TABLET PO SCH (18:22)
[2018-06-08] MEDS: FUROSEMIDE 100MG/10ML VIAL IVP SCH (18:22)
[2018-06-08] MEDS: POTASSIUM CHLORIDE 20MEQ TABLET SR PO SCH (18:22)
[2018-06-08] MEDS ORDERED: ZOLPIDEM TARTRATE 5MG TABLET PO PRN (18:45)
[2018-06-08 20:00] VITALS: BP_SYST 112; BP_SYST 117; BP_DIAS 92
[2018-06-08] MEDS: CARVEDILOL 3.125 MG TABLET PO SCH (21:46)
[2018-06-08 22:00] VITALS: BP 112/93
[2018-06-08] MEDS ORDERED: LORAZEPAM 0.5MG TABLET PO PRN (23:00)
[2018-06-09] VITALS (13 sets, daily range): BP systolic 109–159; BP diastolic 36–104
[2018-06-09 04:12] LABS: CLARITY URINE CLEAR (CLEAR); COLOR URINE YELLOW (YELLOW); KETONES URINE NEGATIVE (NEGATIVE); LEUKOCYTE ESTERASE URINE 1+ (NEGATIVE); NITRITE URINE NEGATIVE (NEGATIVE); OCCULT BLOOD URINE NEGATIVE (NEGATIVE); PROTEIN URINE TRACE (NEGATIVE); SPECIFIC GRAVITY URINE 1.011 (1.005-1.030)
[2018-06-09 06:18] LABS: BASOPHILS % 1.1 % (0.0-2.0); EOSINOPHILS % 10.5 % (0.0-5.0); HEMATOCRIT. 42.9 % (42.0-52.0); HEMOGLOBIN. 14.8 g/dL (14.0-18.0); LYMPHOCYTES % 35.7 % (20.0-50.0); MEAN CORPUSCULAR HEMOGLOBIN 32.7 pg (28.0-32.0); MEAN CORPUSCULAR VOLUME 94.8 fL (80.0-94.0); MEAN PLATELET VOLUME 8.6 fl (7.4-10.4); MONOCYTES % 5.8 % (2.0-8.0); NEUTROPHILS % 46.9 % (40.0-76.0); PLATELET 194 x1000/uL (130-400); RED BLOOD CELL COUNT 4.53 mill/uL (4.7-6.1); RED CELL DISTRIBUTION WIDTH 15.6 % (11.6-14.6)
[2018-06-09] MEDS: POTASSIUM CHLORIDE 20MEQ TABLET SR PO SCH (08:21)
[2018-06-09] MEDS: SPIRONOLACTONE 25MG TABLET PO SCH (08:21)
[2018-06-09] MEDS: CARVEDILOL 3.125 MG TABLET PO SCH (08:21)
[2018-06-09] MEDS: ASPIRIN 81MG EC TABLET PO SCH (08:21)
[2018-06-09] MEDS: FUROSEMIDE 100MG/10ML VIAL IVP SCH (08:21)
[2018-06-09] MEDS: FUROSEMIDE 40MG TABLET PO SCH (16:24)
[2018-06-09] MEDS: LORAZEPAM 1MG TABLET PO PRN ×2 (17:24→21:35)
[2018-06-09] MEDS ORDERED: ZOLPIDEM TARTRATE 5MG TABLET PO PRN (21:00)
[2018-06-09] MEDS: CARVEDILOL 6.25 MG TABLET PO SCH (21:30)
[2018-06-10] VITALS (10 sets, daily range): BP systolic 90–126; BP diastolic 63–84
[2018-06-10 05:52] LABS: BASOPHILS % 0.4 % (0.0-2.0); EOSINOPHILS % 0.9 % (0.0-5.0); HEMATOCRIT. 38.9 % (42.0-52.0); HEMOGLOBIN. 13.6 g/dL (14.0-18.0); MEAN CORPUSCULAR HEMOGLOBIN 32.6 pg (28.0-32.0); MEAN CORPUSCULAR VOLUME 93.5 fL (80.0-94.0); MEAN PLATELET VOLUME 8.6 fl (7.4-10.4); MONOCYTES % 7.4 % (2.0-8.0); NEUTROPHILS % 72.3 % (40.0-76.0); PLATELET 172 x1000/uL (130-400); RED BLOOD CELL COUNT 4.17 mill/uL (4.7-6.1); RED CELL DISTRIBUTION WIDTH 15.3 % (11.6-14.6)
[2018-06-10] MEDS: FUROSEMIDE 40MG TABLET PO SCH (06:44)
[2018-06-10] MEDS: CARVEDILOL 6.25 MG TABLET PO SCH ×2 (09:00→20:54)
[2018-06-10] MEDS: LORAZEPAM 1MG TABLET PO PRN (09:28)
[2018-06-10] MEDS: ASPIRIN 81MG EC TABLET PO SCH (09:28)
[2018-06-10] MEDS ORDERED: LIDOCAINE HCL/PF 1% 2ML VIAL ONE (10:13)
[2018-06-10 11:43] LABS: BG BASE EXCESS -1.7 mmol/L (-2.0-2.0); BG CARBOXYHEMOGLOBIN 0.5 % (0.5-1.5); BG DEOXYHEMOGLOBIN 4.5 % (0.0-5.0); BG FRACTION INSPIRED OXYGEN 21; BG HCO3 ACT 20.8 mmol/L (22.0-26.0); BG METHEMOGLOBIN 0.2 % (0.0-1.5); BG OXYGEN SATURATION 95.5 % (92.0-98.5); BG OXYHEMOGLOBIN 94.8 % (94.0-97.0); BG PCO2 29.5 mmHg (35.0-45.0); BG PH 7.467 (7.350-7.450); BG PO2 84.7 mmHg (75.0-100.0); BG SAMPLE SITE LEFT RADIAL; BG TOTAL HEMOGLOBIN 14.2 g/dL (12.0-18.0); BG VENT MODE ROOM AIR
[2018-06-10] MEDS ORDERED: SODIUM POLYSTYRENE SULFONATE 15 G/60 ML BOT PO NR (14:00)
[2018-06-11] VITALS (7 sets, daily range): BP systolic 109–136; BP diastolic 68–91
[2018-06-11] MEDS: LORAZEPAM 1MG TABLET PO PRN (02:09)
[2018-06-11 06:28] LABS: BASOPHILS % 1.2 % (0.0-2.0); EOSINOPHILS % 4.7 % (0.0-5.0); HEMATOCRIT. 38.7 % (42.0-52.0); HEMOGLOBIN. 13.6 g/dL (14.0-18.0); LYMPHOCYTES % 32.8 % (20.0-50.0); MEAN CORPUSCULAR HEMOGLOBIN 32.6 pg (28.0-32.0); MEAN PLATELET VOLUME 8.7 fl (7.4-10.4); MONOCYTES % 6.4 % (2.0-8.0); NEUTROPHILS % 54.9 % (40.0-76.0); PLATELET 163 x1000/uL (130-400); RED BLOOD CELL COUNT 4.16 mill/uL (4.7-6.1); RED CELL DISTRIBUTION WIDTH 15.3 % (11.6-14.6)
[2018-06-11 07:06] LABS: PHOSPHORUS 3.9 mg/dL (2.5-4.9)
[2018-06-11] MEDS ORDERED: FUROSEMIDE 40MG TABLET PO SCH (09:00)
[2018-06-11] MEDS: ASPIRIN 81MG EC TABLET PO SCH (09:44)
[2018-06-11] MEDS: CARVEDILOL 6.25 MG TABLET PO SCH (09:45)
[2018-06-11] MEDS ORDERED: FURO40TA5 PO (13:02)
[2018-06-11] MEDS ORDERED: COR6 PO (13:02)
== END 2018-06-11 13:30 | disposition home or self-care (01) | DRG 194 ==
LOC: ER 10:23 → 3WST 12:39 → EDBEDREQ 12:45 → EDBEDREQSVC 12:45 → ENRESERV 15:51
PROVIDERS: ADMIT Internal Medicine; ATTEND Internal Medicine
DX: I13.0 Hypertensive heart and chronic kidney disease with heart failure and stage 1 through stage 4 chronic kidney disease, or unspecified chronic kidney disease (principal); J96.91 Respiratory failure, unspecified with hypoxia; N17.0 Acute kidney failure with tubular necrosis; E87.2 Acidosis; D72.1 Eosinophilia; E44.0 Moderate protein-calorie malnutrition; E87.1 Hypo-osmolality and hyponatremia; N18.3 Chronic kidney disease, stage 3 (moderate); I42.0 Dilated cardiomyopathy; I50.23 Acute on chronic systolic (congestive) heart failure; E87.5 Hyperkalemia; F14.129 Cocaine abuse with intoxication, unspecified; F17.200 Nicotine dependence, unspecified, uncomplicated; F19.10 Other psychoactive substance abuse, uncomplicated; J44.9 Chronic obstructive pulmonary disease, unspecified; I25.10 Atherosclerotic heart disease of native coronary artery without angina pectoris; F41.9 Anxiety disorder, unspecified; Z59.0 Homelessness; I25.2 Old myocardial infarction; Z79.82 Long term (current) use of aspirin; Z82.49 Family history of ischemic heart disease and other diseases of the circulatory system; Z86.73 Personal history of transient ischemic attack (TIA), and cerebral infarction without residual deficits
CPT/HCPCS: 36415; 36600; 71045; 76770; 78582; 80048; 80061; 80305; 80320; 82140; 82375; 82550; 82553; 82805; 83605; 83735; 83880; 84100; 84443; 84484; 85379; 87804; 93005; 93970; 96365; 96368; 97162; 97165; 99291; A9558; J0696; J1644; J1940; J3490; J7030; J7060; J7620; G0480

== ENCOUNTER 2018-08-26 13:45 | Emergency (ER) | payer MEDICAID ==
[~2018-08-26] VITALS: Ht 177.8 cm; Wt 73.0 kg
[~2018-08-26 13:45] MED LIST changes: -ASPI-1159 PO; +ASPI-1393 PO; -CARV3.1242 PO; +COR6 PO; +FURO40TA5 PO; -FURO80TA3 PO; -LOSA25TA3 PO; -SPIR25TA6 PO
[2018-08-26 15:13] LABS: CLARITY URINE CLEAR (CLEAR); COLOR URINE YELLOW (YELLOW); KETONES URINE NEGATIVE (NEGATIVE); LEUKOCYTE ESTERASE URINE TRACE (NEGATIVE); NITRITE URINE NEGATIVE (NEGATIVE); OCCULT BLOOD URINE 1+ (NEGATIVE); PROTEIN URINE 1+ (NEGATIVE); SPECIFIC GRAVITY URINE 1.008 (1.005-1.030)
[2018-08-26 15:24] LABS: *AMPHETAMINES SCREEN URINE NEGATIVE (NEGATIVE); *BARBITURATES SCREEN URINE NEGATIVE (NEGATIVE)
[2018-08-26 15:25] LABS: *BENZODIAZEPINES SCREEN URINE PRESUMTIVE POSITIVE (NEGATIVE); *COCAINE SCREEN URINE PRESUMTIVE POSITIVE (NEGATIVE); CANNABINOID URINE SCREEN PRESUMTIVE POSITIVE (NEGATIVE); METHADONE URINE SCREEN NEGATIVE (NEGATIVE); OPIATES URINE SCREEN NEGATIVE (NEGATIVE); PHENCYCLIDINE URINE SCREEN PRESUMTIVE POSITIVE (NEGATIVE)
[2018-08-26 16:00] VITALS: BP 103/72
[2018-08-26 16:16] LABS: BASOPHILS % 0.6 % (0.0-2.0); EOSINOPHILS % 5.4 % (0.0-5.0); HEMATOCRIT. 47.6 % (42.0-52.0); HEMOGLOBIN. 16.6 g/dL (14.0-18.0); LYMPHOCYTES % 14.6 % (20.0-50.0); MEAN CORPUSCULAR HEMOGLOBIN 32.5 pg (28.0-32.0); MEAN CORPUSCULAR VOLUME 93.2 fL (80.0-94.0); MEAN PLATELET VOLUME 8.4 fl (7.4-10.4); MONOCYTES % 3.4 % (2.0-8.0); PLATELET 186 x1000/uL (130-400); RED BLOOD CELL COUNT 5.11 mill/uL (4.7-6.1); RED CELL DISTRIBUTION WIDTH 16.1 % (11.6-14.6)
[2018-08-26 16:17] LABS: CHLORIDE 106 mEq/L (98-107)
[2018-08-26 16:21] LABS: ETHANOL BLOOD < 10 mg/dL
[2018-08-26] MEDS ORDERED: SODIUM CHLORIDE 0.9% 1,000 ML IV ONE (16:30)
== END 2018-08-26 17:45 | disposition home or self-care (01) ==
LOC: ER 13:45
DX: F16.10 Hallucinogen abuse, uncomplicated (principal); F19.10 Other psychoactive substance abuse, uncomplicated; I11.0 Hypertensive heart disease with heart failure; I50.9 Heart failure, unspecified; I25.2 Old myocardial infarction; N28.9 Disorder of kidney and ureter, unspecified; Z79.82 Long term (current) use of aspirin
CPT/HCPCS: 36415; 80053; 80305; 80320; 81003; 85025; 93005; 96360; 99284; J7030; G0480

== ENCOUNTER 2018-11-15 11:30 | Inpatient (IN) | payer MEDICAID ==
[~2018-11-15] VITALS: Ht 190.5 cm; Wt 77.7 kg
[2018-11-15] MEDS ORDERED: albuterol (11:47)
[2018-11-15] MEDS ORDERED: ONDANSETRON HCL 4MG/2ML INJ IV STA (12:05)
[2018-11-15] MEDS ORDERED: MORPHINE SULFATE 4 MG/ML CPJ (NOT FOR IM USE) IV STA (12:05)
[2018-11-15] MEDS ORDERED: ASPIRIN 81MG TABLET PO ONE (12:15)
[2018-11-15] MEDS ORDERED: NITROGLYCERIN OINT 1GM/INCH UDPKT TD ONE (12:15)
[2018-11-15 12:27] LABS: BASOPHILS % 1.1 % (0.0-2.0); EOSINOPHILS % 4.9 % (0.0-5.0); HEMATOCRIT. 42.1 % (42.0-52.0); HEMOGLOBIN. 14.6 g/dL (14.0-18.0); LYMPHOCYTES % 20.7 % (20.0-50.0); MEAN CORPUSCULAR HEMOGLOBIN 33.5 pg (28.0-32.0); MEAN CORPUSCULAR VOLUME 96.5 fL (80.0-94.0); NEUTROPHILS % 68.3 % (40.0-76.0); PLATELET 140 x1000/uL (130-400); RED BLOOD CELL COUNT 4.36 mill/uL (4.7-6.1); RED CELL DISTRIBUTION WIDTH 15.3 % (11.6-14.6)
[2018-11-15 12:32] LABS: CHLORIDE 107 mEq/L (98-107)
[2018-11-15] MEDS ORDERED: FUROSEMIDE 20MG/2ML VIAL IVP ONE (13:00)
[2018-11-15] MEDS ORDERED: ONDANSETRON HCL 4MG/2ML INJ IV PRN (13:15)
[2018-11-15] MEDS ORDERED: FUROSEMIDE 20MG/2ML VIAL IVP NR (14:00)
[2018-11-15 21:08] VITALS: BP 123/81
[2018-11-15 22:00] VITALS: BP 123/81
[2018-11-15] MEDS: CARVEDILOL 6.25 MG TABLET PO SCH (22:00)
[2018-11-16] VITALS (7 sets, daily range): BP systolic 102–138; BP diastolic 63–93
[2018-11-16] MEDS ORDERED: SPIR25TA6 MT (05:31)
[2018-11-16] MEDS ORDERED: LOSA25TA26 MT (05:31)
[2018-11-16] MEDS ORDERED: FERR-71 MT (05:31)
[2018-11-16 08:02] LABS: BASOPHILS % 1.2 % (0.0-2.0); EOSINOPHILS % 10.1 % (0.0-5.0); HEMATOCRIT. 38.1 % (42.0-52.0); HEMOGLOBIN. 13.3 g/dL (14.0-18.0); LYMPHOCYTES % 30.7 % (20.0-50.0); MEAN CORPUSCULAR HEMOGLOBIN 33.6 pg (28.0-32.0); MEAN CORPUSCULAR VOLUME 96.2 fL (80.0-94.0); MEAN PLATELET VOLUME 9.3 fl (7.4-10.4); MONOCYTES % 4.7 % (2.0-8.0); NEUTROPHILS % 53.3 % (40.0-76.0); PLATELET 126 x1000/uL (130-400); RED BLOOD CELL COUNT 3.96 mill/uL (4.7-6.1); RED CELL DISTRIBUTION WIDTH 15.7 % (11.6-14.6)
[2018-11-16] MEDS ORDERED: FUROSEMIDE 40MG/4ML VIAL IVP SCH ×2 (09:00→15:00)
[2018-11-16] MEDS: ASPIRIN 81MG TABLET PO SCH (09:05)
[2018-11-16] MEDS: LOSARTAN POTASSIUM 25 MG TABLET PO SCH (09:06)
[2018-11-16] MEDS: CARVEDILOL 6.25 MG TABLET PO SCH ×2 (09:06→21:00)
[2018-11-16] MEDS: ACETAMINOPHEN 325MG TABLET PO PRN ×2 (11:35→22:57)
[2018-11-16] MEDS: FUROSEMIDE 100MG/10ML VIAL IVP SCH ×2 (16:04→22:57)
[2018-11-16] MEDS ORDERED: NITROGLYCERIN 0.4MG TABLET SL SL PRN (18:00)
[2018-11-16 18:42] LABS: CLARITY URINE CLEAR (CLEAR); COLOR URINE YELLOW (YELLOW); KETONES URINE NEGATIVE (NEGATIVE); LEUKOCYTE ESTERASE URINE 2+ (NEGATIVE); NITRITE URINE NEGATIVE (NEGATIVE); OCCULT BLOOD URINE NEGATIVE (NEGATIVE); PH URINE 5.5 (4.5-8.0); PROTEIN URINE TRACE (NEGATIVE); SPECIFIC GRAVITY URINE 1.015 (1.005-1.030)
[2018-11-16 19:02] LABS: *AMPHETAMINES SCREEN URINE NEGATIVE (NEGATIVE); *BARBITURATES SCREEN URINE NEGATIVE (NEGATIVE); *BENZODIAZEPINES SCREEN URINE NEGATIVE (NEGATIVE); *COCAINE SCREEN URINE PRESUMTIVE POSITIVE (NEGATIVE); METHADONE URINE SCREEN NEGATIVE (NEGATIVE); OPIATES URINE SCREEN NEGATIVE (NEGATIVE)
[2018-11-16 19:03] LABS: CANNABINOID URINE SCREEN PRESUMTIVE POSITIVE (NEGATIVE); PHENCYCLIDINE URINE SCREEN NEGATIVE (NEGATIVE)
[2018-11-16] MEDS ORDERED: LORAZEPAM 2MG/ML CPJ IV PRN (22:15)
[2018-11-17 00:41] VITALS: BP 116/51
[2018-11-17 04:00] VITALS: BP 121/77
[2018-11-17 08:00] VITALS: BP 122/98
[2018-11-17 08:19] LABS: EOSINOPHILS % 8.3 % (0.0-5.0); HEMATOCRIT. 42.5 % (42.0-52.0); HEMOGLOBIN. 14.6 g/dL (14.0-18.0); LYMPHOCYTES % 26.7 % (20.0-50.0); MEAN CORPUSCULAR HEMOGLOBIN 33.5 pg (28.0-32.0); MEAN CORPUSCULAR VOLUME 97.4 fL (80.0-94.0); MEAN PLATELET VOLUME 9.8 fl (7.4-10.4); MONOCYTES % 5.2 % (2.0-8.0); NEUTROPHILS % 58.8 % (40.0-76.0); PLATELET 129 x1000/uL (130-400); RED BLOOD CELL COUNT 4.36 mill/uL (4.7-6.1); RED CELL DISTRIBUTION WIDTH 15.5 % (11.6-14.6)
[2018-11-17] MEDS: FUROSEMIDE 100MG/10ML VIAL IVP SCH (08:49)
[2018-11-17] MEDS: ASPIRIN 81MG TABLET PO SCH (08:50)
[2018-11-17] MEDS: LOSARTAN POTASSIUM 25 MG TABLET PO SCH (08:50)
[2018-11-17] MEDS: CARVEDILOL 6.25 MG TABLET PO SCH (08:50)
[2018-11-17] MEDS ORDERED: COR6 PO (11:52)
[2018-11-17] MEDS ORDERED: LOSA25TA26 MT (11:52)
[2018-11-17] MEDS ORDERED: FURO40TA5 PO (11:52)
[2018-11-17] MEDS ORDERED: TRAM50TA3 MT (11:52)
[2018-11-17] MEDS ORDERED: SPIR25TA6 MT (11:52)
[2018-11-17 12:14] VITALS: BP 96/77
== END 2018-11-17 13:50 | disposition home or self-care (01) | DRG 198 ==
LOC: ER 11:30 → EDBEDREQ 12:18 → ENRESERV 20:27 → 6WST 21:00
PROVIDERS: ADMIT Internal Medicine; ATTEND Internal Medicine
DX: I24.8 Other forms of acute ischemic heart disease (principal); I47.2 Ventricular tachycardia; I50.23 Acute on chronic systolic (congestive) heart failure; I25.10 Atherosclerotic heart disease of native coronary artery without angina pectoris; I42.0 Dilated cardiomyopathy; N18.3 Chronic kidney disease, stage 3 (moderate); I13.0 Hypertensive heart and chronic kidney disease with heart failure and stage 1 through stage 4 chronic kidney disease, or unspecified chronic kidney disease; F17.210 Nicotine dependence, cigarettes, uncomplicated; I34.0 Nonrheumatic mitral (valve) insufficiency; I49.3 Ventricular premature depolarization; F19.10 Other psychoactive substance abuse, uncomplicated; J44.9 Chronic obstructive pulmonary disease, unspecified; Z79.899 Other long term (current) drug therapy; Z91.19 Patient's noncompliance with other medical treatment and regimen; Z86.73 Personal history of transient ischemic attack (TIA), and cerebral infarction without residual deficits; Z87.19 Personal history of other diseases of the digestive system
CPT/HCPCS: 36415; 71045; 73110; 73130; 73200; 80048; 80305; 81003; 83735; 83880; 84484; 93005; 93306; 99285; J1940; J2060; J2270; J2405